=== PATIENT | male | born 1955 | race Caucasian/White ===

== ENCOUNTER 2017-08-21 17:40 | Emergency (ER) | payer OTHER ==
[~2017-08-21] VITALS: Ht 182.9 cm; Wt 87.5 kg
[~2017-08-21 17:40] MED LIST: ACETAMINOPHEN325 M1 PO; BUSPIRONE HCL15 MG PO; CEROVITE ADVAN1 EACH PO; COLACE100 MG PO; DIVALPROEX SOD250 MG PO; DIVALPROEX SOD500 MG PO; EAR WAX DROPS15 M1 OTIC; LEVOTHYROXINE50 MCG PO; MILK OF MA400 MG/5 M PO; NYSTATIN1 EAC1 PO; Q-TUSSIN100 MG/5 M PO; SIMVASTATIN40 MG PO; ZIPRASIDONE HCL60 MG PO
--- OUTSIDE RECORDS SUMMARY | 2017-08-21 17:52 | XMS | Clinical Summary ---
Demographics + + + | Address | [address] | | | [place] [address] | + + + | Home Phone | | + + + | Preferred Language | Unknown | + + + | Marital Status | Single | + + + | Caodaism Affiliation | Unknown | + + + | Race | White | + + + | Ethnic Group | Not or | + + + Author + + + | Author | [facility] | + + + | Organization | [facility] | + + + | Address | Unknown | + + + | Phone | Unavailable | + + + Support +--------+ + + + | Name | Relationship | Address | Phone | +--------+ + + + | Vernell | ECON | [address] | | | | | [place] | | | | | [address] | | +--------+ + + + Care Team Providers + +------+ + | Care Marketing Programs Manager Name | Role | Phone | + +------+ + PP | Unavailable | + +------+ + Source Comments KALI is fully live on both [facility] Ambulatory and [facility] InPatient.[facility] Allergies No Known Allergies Current Medications + + +-------+---------+------+------+-------+ | Prescription | Sig. | Disp. | Refills | Star | End | Statu | | | | | | t | Date | s | | | | | | Date | | | + + +-------+---------+------+------+-------+ | divalproex DR 250 | Take 250 mg by mouth | | | | | Activ | | mg oral | once daily. | | | | | e | | tablet,delayed | | | | | | | | release (DR/EC) | | | | | | | + + +-------+---------+------+------+-------+ | divalproex DR 500 | Take 500 mg by mouth | | | | | Activ | | mg oral | two times daily. | | | | | e | | tablet,delayed | | | | | | | | release (DR/EC) | | | | | | | + + +-------+---------+------+------+-------+ | levothyroxine 50 | Take 50 mcg by mouth | | | | | Activ | | mcg oral tablet | once daily. | | | | | e | + + +-------+---------+------+------+-------+ | simvastatin 40 mg | Take 40 mg by mouth | | | | | Activ | | oral tablet | once daily in the | | | | | e | | | evening. | | | | | | + + +-------+---------+------+------+-------+ | ziprasidone 60 mg | Take 60 mg by mouth | | | | | Activ | | oral capsule | two times daily with | | | | | e | | | meals. | | | | | | + + +-------+---------+------+------+-------+ Active Problems Not on file Social History + +-------+ +--------+------+ | Tobacco Use | Types | Packs/Day | Years | Date | | | | | Used | | + +-------+ +--------+------+ | Never Smoker | | | | | + +-------+ +--------+------+ + + + | Sex Assigned at | Date Recorded | | | | + + + | Not on file | | + + + Last Filed Vital Signs + + + + | Vital Sign | Reading | Time Taken | + + + + | Blood Pressure | 122/80 | 06/28/2014 12:01 PM PST | + + + + | Pulse | 76 | 06/28/2014 12:01 PM PST | + + + + | Temperature | - | - | + + + + | Respiratory Rate | 16 | 06/28/2014 12:01 PM PST | + + + + | Oxygen Saturation | - | - | + + + + | Inhaled Oxygen | - | - | | Concentration | | | + + + + | Weight | 83.9 kg (184 lb 14.4 | 06/28/2014 12:01 PM PST | | | oz) | | + + + + | Height | 182.9 cm (6') | 06/28/2014 12:01 PM PST | + + + + | Body Mass Index | 25.08 | 06/28/2014 12:01 PM PST | + + + + Plan of Treatment + + + + + | Health Maintenance | Due Date | Last Done | Comments | + + + + + | INFLUENZA VACCINE | | | | | (FLU SHOT) | 8 | | | + + + + + Results Not on filefrom Last 3 Months"
--- OUTSIDE RECORDS SUMMARY | 2017-08-21 17:52 | XMS | Clinical Summary ---
Demographics + + + | Address | [address] | | | [place] [address] | + + + | Home Phone | | + + + | Preferred Language | Unknown | + + + | Marital Status | Single | + + + | Anabaptist Affiliation | Unknown | + + + [...] [place] | | | | | [address] | | +--------+ + + + Care Team Providers + +------+ + | Care Therapeutic Assistant Name | Role | Phone | + +------+ + PP | Unavailable | + +------+ + Source Comments KALI is fully live on both [facility] Ambulatory and [facility] InPatient.[facility] Allergies No Known Allergies Current Medications + [...]
[2017-08-21] MEDS ORDERED: FLOMAX0.4 MG PO (18:01)
[2017-08-21] MEDS ORDERED: LATUDA40 MG PO (18:01)
== END 2017-08-21 18:45 | disposition home or self-care (01) ==
LOC: ED 17:40
DX: T42.6X1A Poisoning by other antiepileptic and sedative-hypnotic drugs, accidental (unintentional), initial encounter (principal); E78.00 Pure hypercholesterolemia, unspecified; E03.9 Hypothyroidism, unspecified; Z79.899 Other long term (current) drug therapy
CPT/HCPCS: 99282

== ENCOUNTER 2018-08-18 22:24 | Emergency (ER) | payer OTHER ==
[~2018-08-18] VITALS: Ht 182.9 cm; Wt 87.1 kg
--- OUTSIDE RECORDS SUMMARY | ~2018-08-18 | XMS | Clinical Summary ---
Demographics + + + | Address | [address] | | | [place] [address] | + + + | Home Phone | | + + + | Preferred Language | Unknown | + + + | Marital Status | Single | + + + | Voodoo Affiliation | Unknown | + + + [...] [place] | | | | | [address] | | +--------+ + + + Care Team Providers + +------+ + | Care Roll Repairer Name | Role | Phone | + +------+ + PP | Unavailable | + +------+ + Source Comments KALI is fully live on both [facility] Ambulatory and [facility] InPatient.[facility] Allergies No Known Allergies Current [...] | + + + + + | Influenza (Flu) | | | | | vaccination (#1) | 8 | | | + + + + + Results Not on filefrom Last 3 Months Insurance + +--------+ +--------+-------+---------+ | Payer | Benefi | Subscriber | Type | Phone | Address | | | t Plan | ID | | | | | | / | | | | | | | Group | | | | | + +--------+ +--------+-------+---------+ | PUBLIC HEALTH AIDE MEDICAID | PUBLIC HEALTH AIDE | xxxxxxxx | Medica | | | | | [place] | | id | | | | | [place] | | | | | + +--------+ +--------+-------+---------+ + +--------+ +--------+ + + | Guarantor Name | Accoun | Relation to | Date | Phone | Billing Address | | | t Type | Patient | of | | | | | | | | | | + +--------+ +--------+ + + | FIDEL MILLAN | Person | Self [birth year] Home: | [address] | | | al/[place] | | 1956 | [phone] | [place] [address] | | | l[place] | | | [phone] | | + +--------+ +--------+ + +"
--- OUTSIDE RECORDS SUMMARY | ~2018-08-18 | XMS | Clinical Summary ---
Demographics + + + | Address | [address] | | | [place] [address] | + + + | Home Phone | | + + + | Preferred Language | Unknown | + + + | Marital Status | Single | + + + | Amish Affiliation | Unknown | + + + | Race | Unknown | + + + | Ethnic Group | Unknown | + + + Author + + + | Author | [facility] | | | and [place] | + + + | Organization | [facility] | | | and [place] | + + + | Address | Unknown | + + + | Phone | Unavailable | + + + Support + + + + + | Name | Relationship | Address | Phone | + + + + + | Vernell Camara | ECON | [address] | | | | | [place] | | | | | [address] | | + + + + + | Kim Carter | ECON | Unknown | | + + + + + Care Team Providers + +------+ + | Care Nephrology Nurse Name | Role | Phone | + +------+ + | Pacheco Valdez MD | PP | Unavailable | + +------+ + Allergies No Known Allergies Current Medications + + +-------+---------+------+------+-------+ | Prescription | Sig. | Disp. | Refills | Star | End | Statu | | | | | | t | Date | s | | | | | | Date | | | + + +-------+---------+------+------+-------+ | acetaminophen | Take 650 mg by mouth | | | | | Activ | | (TYLENOL) 325 mg | every 4 hours as | | | | | e | | tablet | needed. | | | | | | + + +-------+---------+------+------+-------+ | guaiFENesin | Take 100 mg by mouth | | | | | Activ | | (ROBITUSSIN) 100 | every 4 hours as | | | | | e | | mg/5 mL SOLN | needed. | | | | | | + + +-------+---------+------+------+-------+ | hydrogen peroxide | Apply topically as | | | | | Activ | | 3% external solution | needed. | | | | | e | + + +-------+---------+------+------+-------+ | nystatin | Apply topically as | | | | | Activ | | (MYCOSTATIN) cream | needed. | | | | | e | + + +-------+---------+------+------+-------+ | levothyroxine | Take 50 mcg by mouth | | | | | Activ | | (SYNTHROID, | every morning | | | | | e | | LEVOTHROID) 50 mcg | (before breakfast). | | | | | | | tablet | | | | | | | + + +-------+---------+------+------+-------+ | ziprasidone | Take 120 mg by mouth | | | | | Activ | | (GEODON) 60 MG | Daily. | | | | | e | | capsule | | | | | | | + + +-------+---------+------+------+-------+ | Multiple | Take by mouth | | | | | Activ | | Vitamins-Minerals | Daily. | | | | | e | | (CEROVITE ADVANCED | | | | | | | | FORMULA PO) | | | | | | | + + +-------+---------+------+------+-------+ | carbamide peroxide | 1 drop 2 times | | | | | Activ | | (DEBROX) 6.5% otic | daily. 5-7 days | | | | | e | | solution | every month | | | | | | + + +-------+---------+------+------+-------+ | divalproex | Take 500 mg by mouth | | | | | Activ | | (DEPAKOTE) 500 mg EC | 2 times daily. | | | | | e | | tablet | | | | | | | + + +-------+---------+------+------+-------+ | divalproex | Take 250 mg by mouth | | | | | Activ | | (DEPAKOTE) 250 mg EC | Daily. | | | | | e | | tablet | | | | | | | + + +-------+---------+------+------+-------+ | simvastatin | Take 20 mg by mouth | | | | | Activ | | (ZOCOR) 40 mg tablet | nightly. | | | | | e | + + +-------+---------+------+------+-------+ Active Problems + + + | Problem | Noted Date | + + + | Weight loss | 02/04/2014 | + + + | Nonspecific (abnormal) findings on radiological and other | 02/04/2014 | | examination of gastrointestinal tract | | + + + | Unspecified hypothyroidism | | + + + + + | Overview: ICD-10 Record update | + + + +---+ | Contact dermatitis and other eczema, due to unspecified cause | | + +---+ | Unspecified malignant neoplasm of skin, site unspecified | | + +---+ + + | Overview: ICD-10 Record update | + + + +---+ | Bipolar disorder, unspecified | | + +---+ + + | Overview: ICD-10 Record update | + + + +---+ | Unspecified schizophrenia, unspecified condition | | + +---+ + + | Overview: ICD-10 Record update | | 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 | + + + +---+ | Essential hypertension, benign | | + +---+ | Pure hypercholesterolemia | | + +---+ | Other specific developmental learning difficulties | | + +---+ | Ingrowing nail | | + +---+ | Cerebral degeneration, unspecified | | + +---+ + + | Overview: ICD-10 Record update | + + + +---+ | Pain in limb | | + +---+ Social History + +-------+ +--------+------+ | Tobacco Use | Types | Packs/Day | Years | Date | | | | | Used | | + +-------+ +--------+------+ | Never Smoker | | | | | + +-------+ +--------+------+ + + +---------+ + | Alcohol Use | Drinks/We | oz/Week | Comments | | | ek | | | + + +---------+ + | No | | | | + + +---------+ + + + + | Sex Assigned at | Date Recorded | | | | + + + | Not on file | | + + + Last Filed Vital Signs + + + + | Vital Sign | Reading | Time Taken | + + + + | Blood Pressure | 137/75 | 04/09/2014 1500 PST | + + + + | Pulse | 65 | 04/09/2014 1500 PST | + + + + | Temperature | 36.3 C (97.3 F) | 04/09/2014 1350 PST | + + + + | Respiratory Rate | 18 | 04/09/2014 1500 PST | + + + + | Oxygen Saturation | 99% | 04/09/2014 1500 PST | + + + + | Inhaled Oxygen | - | - | | Concentration | | | + + + + | Weight | 80.7 kg (178 lb) | 04/09/2014 1225 PST | + + + + | Height | 182.9 cm (6') | 04/09/20145 PST | + + + + | Body Mass Index | 24.14 | 04/09/20145 PST | + + + + Plan of Treatment + + + + + | Health Maintenance | Due Date | Last Done | Comments | + + + + + | Vaccine: | | | | | Dtap/Tdap/Td (1 - | 7 | | | | Tdap) | | | | + + + + + | Vaccine: Zoster (1 | | | | | of 2) | 8 | | | + + + + + | Vaccine: Influenza | | | | | (#1) | 8 | | | + + + + + Results Not on filefrom Last 3 Months Insurance + +--------+ +--------+ +---------+ | Payer | Benefi | Subscriber | Type | Phone | Address | | | t Plan | ID | | | | | | / | | | | | | | Group | | | | | + +--------+ +--------+ +---------+ | [employer] | MODA | [id number] | Medica | [phone] | | | MEDICAID HMO | HEALTH | | id | [phone] | | | | [place]CD | | | | | | | [place] | | | | | + +--------+ +--------+ +---------+ + +--------+ +--------+ + + | Guarantor Name | Accoun | Relation to | Date | Phone | Billing Address | | | t Type | Patient | of | | | | | | | | | | + +--------+ +--------+ + + | FIDEL MILLAN | Person | Self | [birth year] | Home: | [address] [place] | | | al/[place]am | | 1956 | [phone] | [place] [address] | | | [place] | | | [address] | | + +--------+ +--------+ + +"
--- OUTSIDE RECORDS SUMMARY | ~2018-08-18 | XMS | Clinical Summary ---
Demographics + + + | Address | [address] | | | [place] [address] | + + + | Home Phone | | + + + | Preferred Language | Unknown | + + + | Marital Status | Single | + + + | Muslim Affiliation | Unknown | + + + [...] [place] | | | | | [address] | | +--------+ + + + Care Team Providers + +------+ + | Care Marble Cutter Operator Name | Role | Phone | + +------+ + PP | Unavailable | + +------+ + Source Comments KALI is fully live on both [facility] Ambulatory and [facility] InPatient.[facility] Allergies No Known Allergies Current Medications + [...] | | | + +--------+ +--------+-------+---------+ | FINANCIAL SALES CONSULTANT MEDICAID | FINANCIAL SALES CONSULTANT | xxxxxxxx | Medica | | | [...] Self | [birth year] | Home: | [address] | | | [place] | | 1956 | [phone] | [place] [address] | | | [place] | | | [address] | | + +--------+ +--------+ + +"
--- OUTSIDE RECORDS SUMMARY | ~2018-08-18 | XMS | Clinical Summary ---
Demographics + + + | Address | [address] | | | [place] [address] | + + + | Home Phone | | + + + | Preferred Language | Unknown | + + + | Marital Status | Single | + + + | Samaritan Affiliation | Unknown | + + + | Race | Unknown | + + + | Ethnic Group | Unknown | + + + Author + + + | Author | [facility] | | | and Rishabhana | + + + | Organization | [facility] | | | and Rishabhana [...] [place] | | | | | [address] | | + + + + + | Kim Carter | ECON | Unknown | | + + + + + Care Team Providers + +------+ + | Care Chute Feeder Name | Role | Phone | + [...] ICD-10 Record update | | 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
[~2018-08-18 22:24] MED LIST changes: +FLOMAX0.4 MG PO; +LATUDA40 MG PO
[2018-08-19] MEDS ORDERED: KEFLEX500 MG PO (01:45)
== END 2018-08-19 01:51 | disposition home or self-care (01) ==
LOC: ED 22:24
DX: N39.0 Urinary tract infection, site not specified (principal); F79 Unspecified intellectual disabilities; W18.30XA Fall on same level, unspecified, initial encounter; E03.9 Hypothyroidism, unspecified; F41.9 Anxiety disorder, unspecified; F31.9 Bipolar disorder, unspecified; I10 Essential (primary) hypertension; Z79.899 Other long term (current) drug therapy
CPT/HCPCS: 80053; 81001; 85025; 96361; 96365; 99283-25; J0696; J7030

== ENCOUNTER 2019-02-23 05:35 | Inpatient (IN) | payer OTHER ==
[~2019-02-23] VITALS: Ht 182.9 cm; Wt 108.1 kg
--- OUTSIDE RECORDS SUMMARY | ~2019-02-23 | XMS | Encounter Summary ---
Demographics + + + | Address | [address] | | | [place] [address] | + + + | Home Phone [...] Author + + + | Author | [facility] | + + + | Organization | [facility] | + + + | Address | Unknown | + + + | Phone | Unavailable | + + + Support +--------+ + + + | Name | Relationship | Address | Phone | +--------+ + + + | Vernell | ECON | [address] | | | | | [place] | | | | | [address] | | +--------+ + + + Care Team Providers + +------+ + | Care Mitten Sewer Name | Role | Phone | + +------+ + | Pacheco Valdez MD | PCP | | + +------+ + Reason for Visit + + + | Reason | Comments | + + + | New Patient Visit | | + + + Intake Referral (Urgent) +--------+--------+ + + + + | Status | Reason | Specialty | Diagnoses / | Referred By | Referred To | | | | | Procedures | Contact | Contact | +--------+--------+ + + + + | Closed | | Gastroenterol | Diagnoses | José Miguel, | Gas Faculty | | | | ogy | Achalasia | Pacheco Snowden MD | [id number] | | | | | and | PACHECO | [address] [address] | | | | | cardiospasm | JOSÉ MIGUEL GARCIA | Mailcode: | | | | | | [address] | [place] [address] | | | | | | [address] | Health and | | | | | | [place], | Healing, | | | | | | [place] [address] | [address] | | | | | | Phone: | [place], [place] | | | | | | [phone] | [address] | | | | | | Fax: | Phone: | | | | | | [phone] | [phone] | | | | | | | Fax: | | | | | | | [phone] | +--------+--------+ + + + + Encounter Details +--------+---------+ + + + | Date | Type | Department | Care Team | Description | +--------+---------+ + + + | 06/28/ | Office | [facility] | Leyda Trevino, | Achalasia (Primary | | 2014 | Visit | [facility] [address] | PA-C [address] | Dx) | | | | [address] | [address] | | | | | Mailcode: Center | [place], [place] | | | | | [facility] and | [address] | | | | | [facility] [address] | [phone] | | | | | [place], [place] | | | | | | [address] | | | | | | [phone] | | | +--------+---------+ + + + Social History + +-------+ +--------+------+ | Tobacco Use | Types | Packs/Day | Years | Date | | | | | Used | | + +-------+ +--------+------+ | Never Smoker | | | | | + +-------+ +--------+------+ + + +---------+ + | Alcohol Use | Drinks/Week | oz/Week | Comments | + + +---------+ + | Not Asked | | | | + + +---------+ + + + + | Sex Assigned at | Date Recorded | | | | + + + | Not on file | | + + + + + + + | Job Start Date | Occupation | Industry | + + + + | Not on file | Not on file | Not on file | + + + + + + + + | Travel History | Travel Start | Travel End | + + + + + + | No recent travel history available. | + + documented as of this encounter Last Filed Vital Signs + + + + + | Vital Sign | Reading | Time Taken | Comments | + + + + + | Blood Pressure | 122/80 | 06/28/2014 12:01 PM | | | | | PST | | + + + + + | Pulse | 76 | 06/28/2014 12:01 PM | | | | | PST | | + + + + + | Temperature | - | - | | + + + + + | Respiratory Rate | 16 | 06/28/2014 12:01 PM | | | | | PST | | + + + + + | Oxygen Saturation | - | - | | + + + + + | Inhaled Oxygen | - | - | | | Concentration | | | | + + + + + | Weight | 83.9 kg (184 lb 14.4 | 06/28/2014 12:01 PM | | | | oz) | PST | | + + + + + | Height | 182.9 cm (6') | 06/28/2014 12:01 PM | | | | | PST | | + + + + + | Body Mass Index | 25.08 | 06/28/2014 12:01 PM | | | | | PST | | + + + + + documented in this encounter Patient Instructions Patient Instructions Leyda Trevino PA-C - 06/28/2014 12:30 PM PSTTo further evaluate would like to proceed with manometry and probably repeat EGD Discussion with Cade one of his caregivers regarding manometry. Pt will need to be awake f or this and she doesn't think he would cooperate. Will discuss his case with Dr. May and him review previous testing We may need to do nothing else at this point as he has had dilation and gained weight since then. documented in this encounter Progress Notes Leyda Trevino PA-C - 06/27/2014 1:34 PM PSTFormatting of this note might be different fro m the original. Gastroenterology New Patient Evaluation Referring Provider: Pacheco Valdez MD Reason for consult: evaluate for achalasia Previous GI Procedures: 1. colonoscopy 06/2013- Normal by report (not received) 2. EGD 04/09/14- [place], [place] Previous Related Studies: . Pertinent medical diagnosis 1. Developmentally delayed with intermittent explosive disorder HPI: Gemma Tolbert, 58 y.o. presents with history of expressive aphasia and recent EG D suggesting no appreciable esohageal motility with hypertonic LES sp dilation, CT scan that revealed distal dilated esophagus here for further evaluation and possible underlying achal keon. His caregiver says was initially evaluated for a 30 pound weight loss. He will look lik e he has trouble swallowing, they will see him making repetitive swallowing movements after he eats or while he eats. No n/v. His weight has been stable 174-179 since January of 2014 . Since his EGD with dilation in Mar 2014 he has gained 3 pounds. Past Medical History Diagnosis Date Anxiety disorder Bipolar disorder Intermittent explosive disorder Hyperlipidemia Hypothyroid Current outpatient prescriptions:divalproex DR 250 mg oral tablet,delayed release (DR/EC), Take 250 mg by mouth once daily., Disp: , Rfl: divalproex DR 500 mg oral tablet,delayed release (DR/EC), Take 500 mg by mouth two times da luis., Disp: , Rfl: levothyroxine 50 mcg oral tablet, Take 50 mcg by mouth once daily., Disp: , Rfl: simvastatin 40 mg oral tablet, Take 40 mg by mouth once daily in the evening., Disp: , Rfl: ziprasidone 60 mg oral capsule, Take 60 mg by mouth two times daily with meals., Disp: , Rf l: Family History: is unknown History Substance Use Topics Smoking status: Not on file Smokeless tobacco: Not on file Alcohol Use: Not on file Allergies not on file Past Surgical History Procedure Laterality Date Abdominal surgery unknown ROS: unobtainable Physical Exam: Filed Vitals: 06/28/2014 12:01 PM Height: 1.829 m (6') Weight: 83.87 kg (184 lb 14.4 oz) BP: 122/80 Pulse: 76 Resp: 16 PainSc: 0 - Zero BMI: 25.07 kg/(m^2) General appearance: Appears healthy. Alert; in no acute distress. Pleasant but makes aquilino quent hand movements and loud noises Head: negative findings: skull size and contour normal Eyes: Perr, sclera anicertic Throat: Poor dentityion, Lips, mucosa, and tongue normal. Oropharynx and tonsils normal. Neck: Neck supple. No tenderness. No adenopathy. Thyroid symmetric, normal size. Lungs: negatives findings: normal respiratory rate and rhythm, lungs clear to auscultation Heart: regular rhythm; normal S1 and S2 with no murmurs, rubs, or gallops Abdomen: Large midline surgical scar, nondistended; normal bowel sounds; soft, nontender; no hepatomegaly or splenomegaly; no masses Extremities: Extremities normal. No joint deformities, edema, or skin discoloration. Statio n and gait normal. Skin: Skin color, texture, turgor normal. No rashes or lesions. Lymph nodes: No palpable lymph nodes Neurologic: grossly non focal Assessment: Fidel Toscano, 58 y.o., M with presents with history of expressive aphasia a nd recent EGD suggesting no appreciable esohageal motility with hypertonic LES sp dilation, CT scan that revealed distal dilated esophagus here for further evaluation of possible achal nayan. It is unclear if dilation has helped but he has actually gained weight since then and is no longer losing. However, Per his caregiver he still makes the repetitive swallowing mov ements with eating. We discussed additional evaluation such as proceeding with manometry to measure the pressures across the LES. With fidel's developmental delay and underlying mental health diagnosis the caregiver and I agree he probably would not tolerate. I will discuss hi s case further with Dr. May to get further recs. We may do nothing more at this time gi dario that his weight has stabilized. Follow up: pending above. >30 minutes Greater than 50% was on counseling with caregiver on diagnosis of achalsia and how it can be progressive, treatment options including botox or myotomy. Recommended small f requent meals. documented in this en counter Plan of Treatment Not on filedocumented as of this encounter Visit Diagnoses + + | Diagnosis | + + | Achalasia - Primary Achalasia and cardiospasm | + + documented in this encounter"
--- OUTSIDE RECORDS SUMMARY | ~2019-02-23 | XMS | Encounter Summary ---
Demographics + + + | Address | [address] | | | [place] [address] | + + + | Home Phone | | + + + | Preferred Language | Unknown | + + + | Marital Status | Single | + + + | Mandaeism Affiliation | Unknown | + + + | Race | White | + + + | Ethnic Group | Not or | + + + Author + + + | Author | [facility] | + + + | Organization | [facility] | + + + | Address | Unknown | + + + | Phone | Unavailable | + + + Support +--------+ + + + | Name | Relationship | Address | Phone | +--------+ + + + | Vernell | ECON | [address] | | | | | [place] | | | | | [address] | | +--------+ + + + Care Team Providers + +------+ + | Care Paralegal Supervisor Name | Role | Phone | + +------+ + | Pacheco Valdez MD | PCP | | + +------+ + Encounter Details +--------+ + + + + | Date | Type | Department | Care Team | Description | +--------+ + + + + | 06/25/ | Abstract | [facility] | Clinic, | | | 2014 | | [facility] [address] | Gastroenterology | | | | | [facility] | | | | | | Mailcode: [facility] | | | | | | [facility] | | | | | | [facility] [place], [address] | | | | | | [place], [place] | | | | | | [address] | | | | | | [phone] | | | +--------+ + + + + Social History + +-------+ +--------+------+ | Tobacco Use | Types | Packs/Day | Years | Date | | | | | Used | | + +-------+ +--------+------+ | Never Assessed | | | | | + +-------+ [...] + + documented as of this encounter Plan of Treatment Not on filedocumented as of this encounter Visit Diagnoses Not on filedocumented in this encounter"
--- OUTSIDE RECORDS SUMMARY | ~2019-02-23 | XMS | Clinical Summary ---
Demographics + + + | Address | [address] | | | [place] [address] | + + + | Home Phone | | + + + | Preferred Language | Unknown | + + + | Marital Status | Single | + + + | Roman Catholic Affiliation | Unknown | + + + | Race | Unknown | + + + | Ethnic Group | Unknown | + + + Author + + + | Author | [facility] | | | and Rishabhana | + + + | Organization | [facility] | | | and Rishabhana | [...] [place] | | | | | [address] | | + + + + + | Kim Carter | ECON | Unknown | | + + + + + Care Team Providers + +------+ + | Care Commissioning Editor Name | Role | Phone | + +------+ + | Pacheco Valdez MD | PCP | Unavailable | + +------+ + Allergies No Known Allergies Medications + + + +---------+------+------+-------+ | Medication | Sig | Dispensed | Refills | Star | End | Statu | | | | | | t | Date | s | | | | | | Date | | | + + + +---------+------+------+-------+ | acetaminophen | Take 650 mg by mouth | | 0 | | | Activ | | (TYLENOL) 325 mg | every 4 hours as | | | | | e | | tablet | needed. | | | | | | + + + +---------+------+------+-------+ | guaiFENesin | Take 100 mg by mouth | | 0 | | | Activ | | (ROBITUSSIN) 100 | every 4 hours as | | | | | e | | mg/5 mL SOLN | needed. | | | | | | + + + +---------+------+------+-------+ | hydrogen peroxide | Apply topically as | | 0 | | | Activ | | 3% external solution | needed. | | | | | e | + + + +---------+------+------+-------+ | nystatin | Apply topically as | | 0 | | | Activ | | (MYCOSTATIN) cream | needed. | | | | | e | + + + +---------+------+------+-------+ | levothyroxine | Take 50 mcg by mouth | | 0 | | | Activ | | (SYNTHROID, | every morning | | | | | e | | LEVOTHROID) 50 mcg | (before breakfast). | | | | | | | tablet | | | | | | | + + + +---------+------+------+-------+ | ziprasidone | Take 120 mg by mouth | | 0 | | | Activ | | (GEODON) 60 MG | Daily. | | | | | e | | capsule | | | | | | | + + + +---------+------+------+-------+ | Multiple | Take by mouth | | 0 | | | Activ | | Vitamins-Minerals | Daily. | | | | | e | | (CEROVITE ADVANCED | | | | | | | | FORMULA PO) | | | | | | | + + + +---------+------+------+-------+ | carbamide peroxide | 1 drop 2 times | | 0 | | | Activ | | (DEBROX) 6.5% otic | daily. 5-7 days | | | | | e | | solution | every month | | | | | | + + + +---------+------+------+-------+ | divalproex | Take 500 mg by mouth | | 0 | | | Activ | | (DEPAKOTE) 500 mg EC | 2 times daily. | | | | | e | | tablet | | | | | | | + + + +---------+------+------+-------+ | divalproex | Take 250 mg by mouth | | 0 | | | Activ | | (DEPAKOTE) 250 mg EC | Daily. | | | | | e | | tablet | | | | | | | + + + +---------+------+------+-------+ | simvastatin | Take 20 mg by mouth | | 0 | | | Activ | | (ZOCOR) 40 mg tablet | nightly. 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 | + + Last Filed Vital Signs + [...] Weight | 80.7 kg (178 lb) | 04/09/20145 PST | + + + + | Height | 182.9 cm (6') | 04/09/2014 1225 PST | + + + + | Body Mass Index | 24.14 | 04/09/2014 1225 PST | + + + + Plan [...] | | | | | (#1) | 9 | | | + + + + + Results Not on filefrom Last 3 Months Insurance + +--------+ +--------+ +---------+--------+ | Payer | Benefi | Subscriber | Effect | Phone | Address | Type | | | t Plan | ID | ivy | | | | | | / | | Dates | | | | | | Group | | | | | | + +--------+ +--------+ +---------+--------+ | [employer] | MODA | [id number] | | [phone] | | Medica | | MEDICAID HMO | HEALTH | | 012-Pr | 1 | | id | | | MDCD | | esent | | | | | | [place] | | | | | | + +--------+ +--------+ +---------+--------+ + +--------+ +--------+ + + | Guarantor Name | Accoun | Relation to | Date | Phone | Billing Address | | | t Type | Patient | of | | | | | | | | | | + +--------+ +--------+ + + | Fidel Toscano | Person | Self [birth year] | [address] | | | al/[place] | | 1956 | [phone] | [place] [address] | | | luis | | | 4 (Home) | | + +--------+ +--------+ + + Advance Directives Patient has advance care planning documents on file. For more information, please contact:[facility] and [facility] [place] [address]"
--- OUTSIDE RECORDS SUMMARY | ~2019-02-23 | XMS | Clinical Summary ---
Demographics + + + | Address | [address] | | | [place] [address] | + + + | Home Phone | | + + + | Preferred Language | Unknown | + + + | Marital Status | Single | + + + | Jehovah'S Witness Affiliation | Unknown | + + + [...] [place] | | | | | [address] | | +--------+ + + + Care Team Providers + +------+ + | Care Souvenir Assembler Name | Role | Phone | + +------+ + PCP | Unavailable | + +------+ + Source Comments KALI is fully live on both [facility] Ambulatory and [facility] InPatient.[facility] Allergies No Known Allergies Medications + + + +---------+------+------+-------+ | Medication | Sig | Dispensed | Refills | Star | End | Statu | | | | | | t | Date | s | | | | | | Date | | | + + + +---------+------+------+-------+ | divalproex DR 250 | Take 250 mg by mouth | | 0 | | | Activ | | mg oral | once daily. | | | | | e | | tablet,delayed | | | | | | | | release (DR/EC) | | | | | | | + + + +---------+------+------+-------+ | divalproex DR 500 | Take 500 mg by mouth | | 0 | | | Activ | | mg oral | two times daily. | | | | | e | | tablet,delayed | | | | | | | | release (DR/EC) | | | | | | | + + + +---------+------+------+-------+ | levothyroxine 50 | Take 50 mcg by mouth | | 0 | | | Activ | | mcg oral tablet | once daily. | | | | | e | + + + +---------+------+------+-------+ | simvastatin 40 mg | Take 40 mg by mouth | | 0 | | | Activ | | oral tablet | once daily in the | | | | | e | | | evening. | | | | | | + + + +---------+------+------+-------+ | ziprasidone 60 mg | Take 60 mg by mouth | | 0 | | | Activ | | oral capsule | two times daily with | | | | | e | | | meals. | | | | | | + + + +---------+------+------+-------+ Active Problems Not on file Social History [...] | | + + + + + Plan of Treatment + + + + + | Health Maintenance | Due Date | Last Done | Comments | + + + + + | Influenza (Flu) | | | | | vaccination (#1) | 9 | | | + + + + + | Pneumococcal | Aged Out | | No longer eligible | | vaccination | | | based on patient's | | | | | age to complete this | | | | | topic | + + + + + Results Not on filefrom Last 3 Months Insurance + +--------+ +--------+-------+---------+--------+ | Payer | Benefi | Subscriber | Effect | Phone | Address | Type | | | t Plan | ID | ivy | | | | | | / | | Dates | | | | | | Group | | | | | | + +--------+ +--------+-------+---------+--------+ | [employer] | [employer] | xxxxxxxx | 11/18/19 | | | Medica | | | [place] | | 14-Pre | | | id | | | [place] | | sent | | | | + +--------+ +--------+-------+---------+--------+ + +--------+ +--------+ + + | Guarantor Name | Accoun | Relation to | Date | Phone | Billing Address | | | t Type | Patient | of | | | | | | | | | | + +--------+ +--------+ + + | Fidel Toscano | Person | Self | [birth year] | [address] | | | al/Fam | | 8 | [phone] | [place] [address] | | | luis | | | 4 (Home) | | + +--------+ +--------+ + +"
[~2019-02-23 05:35] MED LIST changes: +CIPRO500 MG PO; +FINASTERIDE5 MG PO; +KEFLEX500 MG PO; +OXYBUTYNIN CHLOR5 MG PO
[2019-02-23] MEDS ORDERED: OXYBUTYNIN CHLOR5 M1 PO (09:24)
[2019-02-23] MEDS ORDERED: TAMSULOSIN HCL0.4 MG PO (13:07)
[2019-02-23] MEDS ORDERED: DIVALPROEX SOD500 M1 PO (13:09)
[2019-02-23] MEDS ORDERED: DIVALPROEX SOD250 M1 PO (13:09)
[2019-02-23] MEDS ORDERED: PYRIDIUM200 MG PO (15:15)
[2019-02-23] MEDS ORDERED: ROBAFEN100 MG/5 M PO (15:15)
[2019-02-23] MEDS ORDERED: I-CAPS WITH LU1 EACH PO (16:26)
--- NOTE | 2019-02-23 16:44 | EKG ---
[facility] [address] [facility] [facility] [place], [place] [address] Signed Normal sinus rhythm Normal ECG No previous ECGs available Confirmed by MACIEL PARIS DO ([id number]) on 02/23/2019 4:44:43 PM Electronically Signed By: MACIEL PARIS DO 02/23/19 1644 PATIENT NAME: GAURANG MILLANShantal Corley Electrocardiogram DATE OF : 59 PHYSICIAN: MACIEL PARIS DO REPORT #: [id number] REPORT IS CONFIDENTIAL AND NOT TO BE RELEASED WITHOUT AUTHORIZATION
--- NOTE | 2019-02-24 09:25 | OR ---
[facility] [address] [place], [place] [address] Signed DATE OF OPERATION: 02/23/2019 SURGEON: Bree Brar MD PREOPERATIVE DIAGNOSES: 1. 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 2. Reactive overactive bladder. POSTOPERATIVE DIAGNOSES: 1. 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 2. Reactive overactive bladder. NAMES OF PROCEDURES: 1. Urethral dilation using Mandi sounds, from 14-Afghan to 28-Afghan. 2. Transurethral resection of prostate. ANESTHESIA: General. ESTIMATED BLOOD LOSS: 10 mL. COMPLICATIONS: None. SPECIMENS: Prostate chips sent to Pathology for evaluation. DRAINS: A 22-Afghan 3-way Ge catheter, connected to continuous bladder irrigation. INDICATIONS FOR PROCEDURE: Mr. Millan is a 63-year-old gentleman with a past medical history significant for developmental delay, who initially presented to me earlier this year with complaints of severe urinary urgency, frequency, and weak force of stream. He was initially diagnosed with overactive bladder and was managed with both oxybutynin and Flomax to help with his force of stream. He experienced a bout of gross hematuria, which then prompted a diagnostic cystoscopy. The diagnostic cystoscopy did not reveal any evidence of suspicious bladder masses or lesions, it did reveal evidence of moderate trilobar BPH with the presence of a median lobe. Also of note, he underwent a negative renal bladder Electronically Signed By: BREE BRAR MD 02/24/19 0925 PATIENT NAME: JAZZY MILLAN OPERATIVE REPORT DATE OF : 59 REPORT #: [id number] PHYSICIAN: BREE BRAR MD PCP: ANGIE MONROE MD REPORT IS CONFIDENTIAL AND NOT TO BE RELEASED WITHOUT AUTHORIZATION [facility] [address] [place], [place] [address] Signed ultrasound during the workup. After a long discussion with the patient's caregivers, the decision was made for the patient to undergo transurethral resection of the prostate for definitive management of his obstructing prostatism symptoms. He was recently placed on daily finasteride and is currently still taking Flomax once daily. OPERATIVE FINDINGS: 1. The patient's urethral meatus and fossa navicularis were dilated using Mandi sounds from 14-Afghan to 28-Afghan without difficulty. 2. Physical examination reveals a normal circumcised phallus with a glanular meatus. Testicles are descended bilaterally with no palpable masses. 3. Diagnostic cystoscopy was performed, which revealed no evidence of any suspicious masses, lesions, or stones within the bladder. Bilateral ureteral orifices are easily visualized and are not near the bladder neck. There is diffuse grade 3 bladder wall trabeculation noted. 4. The prostate was resected using a 24-Afghan loop, beginning with the resection of the large median lobe, followed by the left lateral lobe and the right lobe of the prostate. Overall, the resection was quite straightforward and there was minimal hemorrhage associated with the resection. At the end of the resection, there was a very good TUR defect noted in the prostatic urethra, down to the level of the verumontanum. No resection was performed distal to this landmark. I was able to appreciate a normally functioning external sphincter at the end of the procedure. 5. The prostate chips were placed in a specimen cup and sent to Pathology for evaluation. A 22-Afghan 3-way Ge catheter was inserted over a Sensor wire to the end of the procedure, and was connected to continuous bladder irrigation. DESCRIPTION OF PROCEDURE: After informed consent was obtained, the patient was taken back to the operating room. [facility] to the operating room table, where general anesthesia was induced. His genitalia were then prepped and draped in a standard sterile fashion. His urethral meatus and fossa navicularis were then dilated as per above. Using a visual obturator, a 30-degree lens was then inserted through the patient's urethra and into the patient's bladder. Diagnostic cystoscopy was then performed. The visual obturator was then switched out for a resectoscope with a 24-Afghan loop. After careful evaluation of the bilateral ureteral orifices and their location relative to the bladder neck, I began my resection of the large median lobe of the prostate. This resected quite easily and with minimal hemorrhage. I then turned my attention then to the left lateral lobe of the prostate, followed by the right lateral lobe of the prostate. The prostate tissue was dissected down to the level of the capsule laterally and down distally to the verumontanum. There was no additional resection performed beyond the verumontanum. As stated above, there was minimal hemorrhage during the resection. When there was hemorrhage, adequate hemostasis was achieved and maintained using the bipolar loop. The prostate chips were then irrigated from the patient's bladder using a Rolanda Electronically Signed By: BREE BRAR MD 02/24/19 0925 PATIENT NAME: JAZZY MILLAN OPERATIVE REPORT DATE OF : 59 REPORT #: [id number] PHYSICIAN: BREE BRAR MD PCP: ANGIE MONROE MD REPORT IS CONFIDENTIAL AND NOT TO BE RELEASED WITHOUT AUTHORIZATION [address] [address] Signed syringe. I repeated the resection of the prostate a couple of times to resect the remaining prostatic tissue. I then switched the resectoscope for a bipolar loop and then cauterized areas of the prostatic capsule, namely the anterior bladder neck area. At the end of the resection, I was able to fully visualize the bilateral ureteral orifices, which were not affected by the resection. Once I was satisfied that hemostasis was complete, I repeated irrigation of the remaining prostate chips from the patient's bladder. The prostate chips were placed in a specimen cup to be sent to Pathology for evaluation. The resectoscope was removed, leaving the sheath within the patient's bladder. I inserted a Sensor wire through the sheath into the patient's bladder and the sheath was then removed fully intact. Over the wire, a 22-Afghan 3-way Ge catheter was inserted into the patient's bladder. The wire was removed, leaving the catheter behind. The catheter was then anchored using 30 mL of sterile water. The Ge catheter was then manually irrigated a couple more times and the effluent was very clear light pink in color. The catheter was then connected to continuous bladder irrigation. The procedure was then terminated. The patient tolerated the procedure well without any complication. He will now be transferred to the postanesthesia care unit in stable condition. DISPOSITION: I discussed the details of today's procedure with Mae, the clinical protective services case worker at [facility] and answered all of her questions. The patient will remain here in the hospital for the next two nights, receiving appropriate sedation and one-on-one sitter in order to prevent possible traumatic removal of the catheter on the part of the patient. He has mental delay around two years, and has a history of irritability with various procedures. A regular diet will be advanced slowly as tolerated, and he will be given pain control as needed. Dr. Francis Stinson has been consulted for management of a Precedex drip. I anticipate that the patient will be discharged to home on the morning of February 25. Prior to discharge, his Ge catheter will be removed and he will undergo a voiding trial. He will be scheduled to return to clinic in approximately four weeks for his 1st postoperative evaluation. The clinical staff is aware that the patient's activities will need to be limited for the next six weeks, including no pushing, pulling, straining, or squatting. Bree Brar MD AR/MODL /[id number] Electronically Signed By: BREE BRAR MD 02/24/19 0925 PATIENT NAME: JAZZY MILLAN OPERATIVE REPORT DATE OF : 59 REPORT #: [id number] PHYSICIAN: BREE BRAR MD PCP: ANGIE MONROE MD REPORT IS CONFIDENTIAL AND NOT TO BE RELEASED WITHOUT AUTHORIZATION [facility] [address] [place] [address] [place], [place] [address] Signed Copies: ~ Electronically Signed By: BREE BRAR MD 02/24/19 0925 PATIENT NAME: JAZZY MILLAN OPERATIVE REPORT DATE OF : 59 REPORT #: [id number] PHYSICIAN: BREE BRAR MD PCP: ANGIE MONROE MD REPORT IS CONFIDENTIAL AND NOT TO BE RELEASED WITHOUT AUTHORIZATION
--- NOTE | 2019-02-24 13:59 | PATH ---
[facility] [address] [place], [place] [address] Signed SPECIMEN(S): A PROSTATE CHIPS SPECIMEN SOURCE: A. PROSTATE CHIPS CLINICAL HISTORY: BPH with lutz; OAB. Cystoscopy with TURP. FINAL PATHOLOGIC DIAGNOSIS: Prostate, transurethral resection: - Benign nodular, glandular and stromal hyperplasia. - Mild chronic prostatitis. LJA:cml:C2NR MICROSCOPIC EXAMINATION: Histologic sections of all submitted blocks are examined by light microscopy. These findings, together with the gross examination, support the pathologic diagnosis. GROSS DESCRIPTION: The specimen, labeled "POLY, prostate chips," is received in formalin and consists of a 16.0 g, 5.5 x 5.5 x 1.5 cm aggregate of caro-pink to caro-white soft tissue fragments. No discrete lesions are identified. The specimen is entirely submitted in cassettes (A1-A7). AR (under the direct supervision of a pathologist) The Gross Description was prepared using a voice recognition system. The report was reviewed for accuracy; however, sound-alike word errors, addition and/or deletions may occur. If there is any question about this report, please contact Client Services. PERFORMING LABORATORY: The technical component was performed by [facility], [address] [place] [id number] (Dry Cleaner Presser: Gena Teresa MD; CLIA# [id number]) [facility] [address] [address] (Dry Cleaner Presser: Rob Wiley MD; CLIA# [id number]). Diagnostician: Rob Wiley MD Pathologist Electronically Signed 02/24/2019 PATIENT NAME: JAZZY MILLAN PATHOLOGY DATE OF : 59 REPORT #: [id number] PHYSICIAN: [facility] PCP: ANGIE MONROE MD REPORT IS CONFIDENTIAL AND NOT TO BE RELEASED WITHOUT AUTHORIZATION [address] [address] Signed Copies: ~ PATIENT NAME: JAZZY MILLAN PATHOLOGY DATE OF : 59 REPORT #: [id number] PHYSICIAN: [facility] PCP: ANGIE MONROE MD REPORT IS CONFIDENTIAL AND NOT TO BE RELEASED WITHOUT AUTHORIZATION
== END 2019-02-25 13:30 | disposition home or self-care (01) | DRG 713 ==
LOC: DS 05:35 → OPS 05:35 → DS 06:45 → OPS 09:12 → CCU 09:12 → MS 02-24 18:40
PROVIDERS: ADMIT Urology
PROC: 0VT08ZZ Resection of Prostate, Via Natural or Artificial Opening Endoscopic (ICD-10-PCS; principal; 2019-02-23 06:45)
DX: N40.1 Benign prostatic hyperplasia with lower urinary tract symptoms (principal); E87.1 Hypo-osmolality and hyponatremia; F05 Delirium due to known physiological condition; N39.41 Urge incontinence; R35.0 Frequency of micturition; N32.89 Other specified disorders of bladder; N32.81 Overactive bladder; N13.9 Obstructive and reflux uropathy, unspecified; G80.9 Cerebral palsy, unspecified; F31.9 Bipolar disorder, unspecified; F79 Unspecified intellectual disabilities; E78.5 Hyperlipidemia, unspecified; E03.9 Hypothyroidism, unspecified; E66.9 Obesity, unspecified; F20.9 Schizophrenia, unspecified; I10 Essential (primary) hypertension; F41.9 Anxiety disorder, unspecified; Z68.34 Body mass index [BMI] 34.0-34.9, adult; Z79.899 Other long term (current) drug therapy
CPT/HCPCS: 00914; 36415; 80048; 88305; 93005; 93010; C1769; J0696; J1100; J1650; J1885; J2060; J2250; J2405; J2704; J2765; J3010; J7030; J7060; J7120

== ENCOUNTER 2021-12-10 08:39 | Emergency (ER) | payer OTHER ==
[~2021-12-10] VITALS: Ht 182.9 cm; Wt 108.1 kg
[~2021-12-10 08:39] MED LIST changes: +DIVALPROEX SOD250 M1 PO; +DIVALPROEX SOD500 M1 PO; +I-CAPS WITH LU1 EACH PO; +OXYBUTYNIN CHLOR5 M1 PO; +PYRIDIUM200 MG PO; +ROBAFEN100 MG/5 M PO; +TAMSULOSIN HCL0.4 MG PO
== END 2021-12-10 10:20 | disposition home or self-care (01) ==
LOC: ED 08:39
DX: R10.9 Unspecified abdominal pain (principal); I10 Essential (primary) hypertension; E03.9 Hypothyroidism, unspecified; K31.84 Gastroparesis; Z79.899 Other long term (current) drug therapy
CPT/HCPCS: 99284

== ENCOUNTER 2022-04-12 08:22 | Emergency (ER) | payer OTHER ==
[~2022-04-12] VITALS: Ht 182.9 cm; Wt 108.1 kg
[2022-04-12] MEDS ORDERED: IBU600 MG PO (20:39)
== END 2022-04-12 10:28 | disposition home or self-care (01) ==
LOC: ED 08:22
DX: J10.1 Influenza due to other identified influenza virus with other respiratory manifestations (principal); Z20.822 Contact with and (suspected) exposure to COVID-19; W19.XXXA Unspecified fall, initial encounter
CPT/HCPCS: 36415; 71045; 80053; 83735; 85025; 87502; 99285-25; A9270; C9803; J7040; U0003

== ENCOUNTER 2022-04-12 19:10 | Emergency (ER) | payer OTHER ==
[~2022-04-12] VITALS: Ht 182.9 cm; Wt 108.5 kg
--- OUTSIDE RECORDS SUMMARY | 2022-04-12 19:18 | XMS ---
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 MILLAN Security Nursing Home Aide Events No recent Security Events currently on file CRITERIA MET - [facility] - 2 Visits in 30 Days CARE PROVIDERS There are no care providers on record at this time. Care Guidelines exist for the following facilities: [facility] ( 10/26/2019 ) [facility] VISIT COUNT (12 MO.) 3 [facility] TOTAL 3 NOTE: Visits indicate total known visits. ED/UCC VISIT TRACKING (12 MO.) 04/12/2022 19:10 [facility] [place] TYPE: Emergency COMPLAINT: - COLD SYMPTOMS 04/12/2022 08:22 [facility] [place] TYPE: Emergency COMPLAINT: - FALL, WEAKNESS 12/10/2021 08:40 [facility] [place] TYPE: Emergency COMPLAINT: - WEAKNESS DIAGNOSES: - Unspecified abdominal pain - Essential (primary) hypertension - Hypothyroidism, unspecified - Gastroparesis - Other signals analyst (current) drug therapy INPATIENT VISIT TRACKING (12 MO.) No inpatient visits to display in this time frame [email or web address]
[2022-04-12] MEDS ORDERED: IBU600 MG PO (20:39)
== END 2022-04-12 21:00 | disposition home or self-care (01) ==
LOC: ED 19:10
DX: J10.1 Influenza due to other identified influenza virus with other respiratory manifestations (principal); E78.00 Pure hypercholesterolemia, unspecified; E03.9 Hypothyroidism, unspecified; I10 Essential (primary) hypertension; Z79.899 Other long term (current) drug therapy
CPT/HCPCS: 94640; 94664; 96372; 99284-25; J1885

== ENCOUNTER 2022-04-27 05:42 | Day surgery (SDC) | payer OTHER ==
[~2022-04-27] VITALS: Ht 182.9 cm; Wt 95.5 kg
[~2022-04-27 05:42] MED LIST changes: +IBU600 MG PO; +METFORMIN HCL500 MG PO
--- NOTE | 2022-04-27 08:20 | NUR ---
04/27/22 0820 Jerica Sheldon 0755 PT ARRIVED TO PACU WITH ORAL AIRWAY IN PLACE AND ENTOMOLOGY PROFESSOR DOING JAW THRUST TO MAINTAIN AIRWAY. PT ASLEEP AND NON AROUSABLE. 0805 PT STARTED MOVING AND BITTING DOWN ON AIRWAY, PT UNABLE TO FOLLOW COMMANDS AND AIRWAY REMAINS IN PLACE, PT ASLEEP AND JAW THRUST NO LONGER NEEDED. 0810 PT WAKES AND OPENS MOUTH, ORAL AIRWAY AND O2 MASK REMOVED. 0815 O2 SAT 87% AND 3L NC PLACE, PT WAKES TO TACTILE STIMULI AND ENCOURAGED TO DEEP BREATHE. O2 INCREASED TO 90S. 0819 PT ASLEEP AND SMALL AMOUNT OF SNORING NOTED. O2 HIGH 90S, RESP EVEN AND UNLABORED.
--- NOTE | 2022-04-27 08:30 | NUR ---
0830-PATIENT BACK TO ROOM FROM PACU ON 2L VIA. RECEIVED REPORT FORM YEIMY FRANCIS. PATIENT IS AWAKE. PATIENT IS NONVERBAL AND DOESN'T APPEAR TO BE IN PAIN. PATIENT IS DRINKING A SODA AND EATING PUDDING. NO DRAINAGE IN MOUTH. COORDINATOR OF GENETIC SERVICES IN ROOM. CALL LIGHT WITHIN REACH.
--- NOTE | 2022-04-27 09:10 | NUR ---
TIRTATED O2 OFF. O2 SATS AROUND 98% ON RA.
--- NOTE | 2022-04-27 10:02 | NUR ---
0927-PATIENT LAYING IN BED AWAKE WATCHING TV. PATIENT DOESN'T APPEAR TO BE IN PAIN. NO DRAINAGE NOTED. CAREGIVER AT BEDSIDE AND CALL LIGHT WITHIN REACH. PATIENT IS READY TO GO HOME.
--- NOTE | 2022-04-27 10:05 | NUR ---
0935-DISCHARGE INSTRUCTIONS GIVEN TO TRACTOR OPERATOR BATTERY. ALL QUESTIONS ANSWERED. PATIENT AMBULATES TO WHEELCHAIR WITH ASSISTANCE. TOLERATED WELL. RIDE GIVEN TO FRONT OF HOSPITAL WHERE VAN AND CAREGIVER WERE WAITING.
== END 2022-04-27 09:35 | disposition home or self-care (01) ==
LOC: DS 05:42 → OPS 05:42 → DS 07:00 → OPS 09:35
PROVIDERS: ATTEND Dentist General Practice
DX: K05.6 Periodontal disease, unspecified (principal); I10 Essential (primary) hypertension; F31.9 Bipolar disorder, unspecified; E11.9 Type 2 diabetes mellitus without complications; G80.9 Cerebral palsy, unspecified; E78.00 Pure hypercholesterolemia, unspecified
CPT/HCPCS: J1885; J2001; J2250; J2405; J2704; J3010; J7121

== ENCOUNTER 2022-11-01 15:06 | Emergency (ER) | payer MEDICARE, OTHER ==
[~2022-11-01] VITALS: Ht 182.9 cm; Wt 92.0 kg
[2022-11-01 20:06] VITALS: BP 142/96
== END 2022-11-01 20:06 | disposition home or self-care (01) ==
LOC: ED 15:06
DX: J34.89 Other specified disorders of nose and nasal sinuses (principal); I10 Essential (primary) hypertension; E03.9 Hypothyroidism, unspecified; F20.9 Schizophrenia, unspecified; F71 Moderate intellectual disabilities; Z79.899 Other long term (current) drug therapy
CPT/HCPCS: 99283

== ENCOUNTER 2023-06-14 05:30 | Day surgery (SDC) | payer MEDICARE, OTHER ==
[~2023-06-14] VITALS: Ht 182.9 cm; Wt 86.6 kg
[~2023-06-14 05:30] MED LIST changes: +BASE B,POLYETHYL1 GM MC; +MILK OF MA2400 MG/10 PO; +SENNA8.6 MG PO; +TUSSIN100 MG/51 PO
[2023-06-14 06:00] VITALS: BP 143/98
[2023-06-14] MEDS ORDERED: MYRBETRIQ25 MG PO (06:10)
[2023-06-14] MEDS ORDERED: LEVOTHYROXINE50 MC1 PO (06:11)
[2023-06-14] MEDS ORDERED: METFORMIN HCL500 MG PO (06:11)
--- NOTE | 2023-06-14 06:48 | NUR ---
THIS RN IN ROOM IN ATTEMPT FOR BS CHECK, PT HANDS SHAKING AND CLENCHED AT THIS TIME. UNABLE TO COLLECT BS. PER RACHAEL PEREZ, OK WITHOUT. PT RESTING CALMLY IN BED AT THIS TIME. PER PT TAKING HTN MEDICATION AND DM TYPE 2 MED, EKG STANDARD PROTOCAL. PER RACHAEL PEREZ, AFTER REVIEWING EKG FROM 2019 NORMAL SR, OK WITHOUT.
--- NOTE | 2023-06-14 08:01 | NUR ---
06/14/23 0801 Tiffany Almonte 0745: PATIENT ARRIVES IN PACU WITH CHRIS CANO, JAW THRUSTING PATIENT AND ORAL AIRWAY IS IN PLACE. PATIENT IS UNRESPONSIVE. PENNY BANDA TAKES OVER JAW THRUST. BEDSIDE REPORT RECEIVED. 0800: PATIENT MOVES HEAD AND DOES NOT FOLLOW COMMANDS TO OPEN HIS MOUTH. DEEP ORAL SUCTIONING COMPLETED. PATIENT RETURNS TO RESTING QUIETLY WITH HIS EYES CLOSED. JAW THRUST IS NO LONGER NECESSARY. ORAL AIRWAY REMAINS IN PLACE.
--- NOTE | 2023-06-14 08:20 | NUR ---
PT ARRIVES TO UNIT FROM PACU VIA STRETCHER. PT IS AWAKE AND APPEARS COMFORTABLE AT THIS TIME PER FLACC SCALE. REPORT RECEIVED FROM CRUZ FRANCIS, FOOD SERVICE DIRECTOR MIGUEL ANGEL AT BEDSIDE. PT HAS SCANT AMOUNT OF RED DRAINAGE DURING SUCTIONING, PT FOLLOWING DIRECTION WITHOUT DIFFICULTY. SCD'S IN PLACE W/WARM BLANKET. PT ON RA W/O2 SATS >90%, RESPIRATIONS EVEN AND UNLABORED, NO SIGNS OF DISTRESS. PT OCCASIONALLY COUGHS, POSITIVE REINFORCEMENT USED FOR ENCOURAGEMENT OF THIS, PT SEEMS RECEPTIVE. CALL LIGHT WITHIN REACH, NO FURTHER NEEDS AT THIS TIME.
[2023-06-14 08:30] VITALS: BP 154/98
--- NOTE | 2023-06-14 08:40 | NUR ---
THIS RN IN ROOM FOR ORAL FLUIDS AND SF PUDDING. PT IS TOLERATING WITHOUT DIFFICULTY SWALLOWING AND CONTINUES TO COUGH TO CLEAR THROAT ENCOURAGED. PT REMAINS ON RA, REMAINS >90% VIA PULSE OX WHILE EATING. CALL LIGHT WITHIN REACH, NO FURTHER NEEDS AT THIS TIME. PER FLACC SCALE, PT REMAINS COMFORTABLE AND FREE OF PAIN.
[2023-06-14 09:08] VITALS: BP 150/97
--- NOTE | 2023-06-14 09:20 | NUR ---
IN PT ROOM FOR VS AND ASSESSMENT. NO ACUTE CHANGES FROM PREVIOUS ASSESSMENT AT THIS TIME. VS TAKEN. PT REMAINS ALERT AND PER TEXTILE TECHNICAL OFFICER BACK TO BASELINE FOR BEHAVIOR. PT >90% VIA RA, RESPIRATIONS EVEN AND UNLABORED, NO SIGNS OF DISTRESS. TEXTILE TECHNICAL OFFICER NOW ASSISTING PT WITH GETTING DRESSED AND TO URINE VOID (UNMEASURED). CALL LIGHT WITHIN REACH.
--- NOTE | 2023-06-14 09:25 | NUR ---
DISCHARGE EDUCATION PROVIDED AT THIS TIME TO TRANSPORTATION ENGINEER, VERBAL UNDERSTANDING STATED. IV DC'ED, WNL. PT OFF OF UNIT VIA WC TO PASSENGER SIDE OF VEHICLE AT THIS TIME, NO FURTHER QUESTIONS OR NEEDS PER TRANSPORTATION ENGINEER. ALL BELONGINGS WITHIN PT POSSESSION AT THIS TIME.
== END 2023-06-14 09:25 | disposition home or self-care (01) ==
LOC: DS 05:30 → OPS 05:30 → DS 07:00 → OPS 07:00
PROVIDERS: ATTEND Dentist General Practice
DX: Z01.20 Encounter for dental examination and cleaning without abnormal findings (principal); F31.81 Bipolar II disorder; F79 Unspecified intellectual disabilities; E03.9 Hypothyroidism, unspecified; E78.00 Pure hypercholesterolemia, unspecified; F20.9 Schizophrenia, unspecified; G80.9 Cerebral palsy, unspecified; N40.1 Benign prostatic hyperplasia with lower urinary tract symptoms; E11.9 Type 2 diabetes mellitus without complications; Z79.899 Other long term (current) drug therapy
CPT/HCPCS: 80048; A9270; J0330; J1100; J1885; J2250; J2405; J2704; J2765; J3010; J3490; J7121

== ENCOUNTER 2024-04-19 17:54 | Emergency (ER) | payer MEDICARE, OTHER ==
[~2024-04-19] VITALS: Ht 182.9 cm; Wt 89.0 kg
[~2024-04-19 17:54] MED LIST changes: +ASPIRIN81 MG PO; -BASE B,POLYETHYL1 GM MC; +EAR WAX DROPS15 M1 AU; -EAR WAX DROPS15 M1 OTIC; +LEVOTHYROXINE50 MC1 PO; -MILK OF MA2400 MG/10 PO; +MIRALAX17 GM PO; +MYRBETRIQ25 MG PO; +NASAL MOISTURIZ88 ML NAS; +TRIPLE ANTIBIOT28 G1 TOP
[2024-04-19] MEDS ORDERED: LIDOCAINE 2% VISCOUS 6 ML SYR TOP ONE ×2 (18:30→19:00)
[2024-04-19 18:32] LABS: BASOPHILS 0.6 % (0-2); EOSINOPHILS 0.8 % (0-6); HEMATOCRIT 38.9 % (35.0-50.0); LYMPHOCYTES 9.7 % (24-44); MCH 31.9 (27-36); MCHC 33.5 g/dl (30-36); MCV 95.3 fl (81-99); MONOCYTES 12.6 % (0-12); NEUTROPHILS 76.3 % (39-80); PLATELET COUNT 152 K/uL (140-440); RBC 4.08 M/ul (4.3-5.7); RDW 13.8 (10.5-15.0)
[2024-04-19] MEDS ORDERED: LIDOCAINE 2% VISCOUS 6 ML SYR ONE (18:40)
[2024-04-19 18:47] LABS: ALBUMIN 2.8 g/dL (3.4-5.0); ALBUMIN/GLOBULIN RATIO 0.72 (1.1-2.4); ANION GAP 17.2 (7-21); BILIRUBIN, TOTAL 0.5 ng/dL (0.2-1.0); BUN/CREATININE RATIO 13.49 (6.0-28.6); CALCIUM 8.5 mg/dL (8.5-10.1); CREATININE, SERUM 1.26 mg/dL (0.70-1.30); POTASSIUM 4.2 mmol/L (3.5-5.1); PROTEIN, TOTAL 6.7 g/dL (6.4-8.2)
[2024-04-19 19:00] LABS: BILIRUBIN, URINE NEGATIVE (negative); BLOOD/HGB, URINE MODERATE (Negative); KETONE, URINE TRACE (Negative); LEUK ESTERASE, URINE NEGATIVE (negative); NITRITE, URINE NEGATIVE (negative); PH, URINE 5.5 (5-7)
[2024-04-19 19:12] LABS: BACTERIA, URINE 2+ /hpf (negative); CASTS, URINE NONE SEEN \\lpf; COLLECTION TYPE, URINE CLEAN CATCH; CRYSTALS, URINE NONE SEEN (0-1+); EPITHELIAL CELLS, URINE NONE SEEN /lpf (0-1+); REFLEX CULTURE, URINE Yes (No)
[2024-04-19] MEDS ORDERED: AZITHROMYCIN 250 MG HOME.PACK PO ONE (19:15)
[2024-04-19] MEDS ORDERED: CEFTRIAXONE/SODIUM CHLORIDE 1 GM/100 ML PIGGYBACK IV ONE (19:15)
[2024-04-19 19:21] LABS: INFLUENZA B NAA NEGATIVE (NEGATIVE); RESPIRATORY SYNCYTIAL VIR NAA NEGATIVE (NEGATIVE)
[2024-04-19 19:47] VITALS: BP 108/72
== END 2024-04-19 19:47 | disposition home or self-care (01) ==
LOC: ED 17:54
PROVIDERS: Emergency Medicine
DX: J18.9 Pneumonia, unspecified organism (principal); I10 Essential (primary) hypertension; E03.9 Hypothyroidism, unspecified; F31.9 Bipolar disorder, unspecified; Z79.899 Other long term (current) drug therapy; Z79.890 Hormone replacement therapy
CPT/HCPCS: 36415; 51701; 71045; 80053; 81001; 85025; 87088; 87502; 99285-25; J0696; U0002

== ENCOUNTER 2024-07-16 14:12 | Emergency (ER) | payer MEDICARE, OTHER ==
[~2024-07-16] VITALS: Ht 182.9 cm; Wt 83.9 kg
[~2024-07-16 14:12] MED LIST changes: -NASAL MOISTURIZ88 ML NAS; +TUSSIN DM PO; -TUSSIN100 MG/51 PO; +[UNRECOGNIZED DRUG - OTHER] NAS
[2024-07-16] MEDS ORDERED: ALBUTEROL/IPRATROPIUM 3 ML NEB INH PRN (14:45)
[2024-07-16 14:46] LABS: BASOPHILS 0.5 % (0-2); EOSINOPHILS 0.4 % (0-6); HEMATOCRIT 35.3 % (35.0-50.0); HEMOGLOBIN 12.1 g/dL (12.0-18.0); LYMPHOCYTES 11.7 % (24-44); MCH 32.2 (27-36); MCHC 34.2 g/dl (30-36); MCV 94.1 fl (81-99); MONOCYTES 16.9 % (0-12); NEUTROPHILS 70.5 % (39-80); PLATELET COUNT 164 K/uL (140-440); RBC 3.76 M/ul (4.3-5.7); RDW 13.9 (10.5-15.0)
[2024-07-16 15:07] LABS: ALBUMIN/GLOBULIN RATIO 0.81 (1.1-2.4); ALKALINE PHOSPHATASE 97 U/L (46-116); ALT (SGPT) 42 U/L (14-59); ANION GAP 13.1 (7-21); AST (SGOT) 49 U/L (15-37); BILIRUBIN, TOTAL 0.5 mg/dL (0.2-1.0); BUN/CREATININE RATIO 13.54 (6.0-28.6); CALCIUM 8.7 mg/dL (8.5-10.1); CARBON DIOXIDE 27 mmol/L (21-32); CHLORIDE 97 mmol/L (98-107); CREATININE, SERUM 0.96 mg/dL (0.70-1.30); GLOMERULAR FILTRATION RATE,EST 87 mL/min (>60); MAGNESIUM 1.9 mg/dL (1.8-2.4); POTASSIUM 4.1 mmol/L (3.5-5.1); PROTEIN, TOTAL 6.7 g/dL (6.4-8.2); UREA NITROGEN 13 mg/dL (7-18)
[2024-07-16 16:02] LABS: BILIRUBIN, URINE NEGATIVE (negative); BLOOD/HGB, URINE TRACE-I (Negative); KETONE, URINE TRACE (Negative); LEUK ESTERASE, URINE NEGATIVE (negative); NITRITE, URINE NEGATIVE (negative)
[2024-07-16 16:07] LABS: BACTERIA, URINE NONE SEEN /hpf (negative); CASTS, URINE NONE SEEN \\lpf; COLLECTION TYPE, URINE CLEAN CATCH; CRYSTALS, URINE NONE SEEN (0-1+); EPITHELIAL CELLS, URINE NONE SEEN /lpf (0-1+); REFLEX CULTURE, URINE No (No); WHITE BLOOD CELLS, URINE 0-1 /HPF (0-5)
[2024-07-16 16:40] LABS: INFLUENZA B NAA NEGATIVE (NEGATIVE); RESPIRATORY SYNCYTIAL VIR NAA NEGATIVE (NEGATIVE)
[2024-07-16 17:24] VITALS: BP 118/86
--- NOTE | 2024-07-17 13:01 | EKG ---
[facility] [address] [facility] [place] [address] Signed Normal sinus rhythm Normal ECG When compared with ECG of 30-JUN-2023 19:10, No significant change was found Confirmed by Long Finney DO ([id number]) on 07/17/2024 1:01:04 PM Electronically Signed By: LONG FINNEY DO 07/17/24 1301 PATIENT NAME: MONTYJAZZY Corley Electrocardiogram DATE OF : 59 PHYSICIAN: LONG FINNEY DO REPORT #: [id number] REPORT IS CONFIDENTIAL AND NOT TO BE RELEASED WITHOUT AUTHORIZATION
== END 2024-07-16 17:24 | disposition home or self-care (01) ==
LOC: ED 14:12
PROVIDERS: Emergency Medicine
DX: B34.9 Viral infection, unspecified (principal); G80.9 Cerebral palsy, unspecified; E03.9 Hypothyroidism, unspecified; I10 Essential (primary) hypertension; F31.9 Bipolar disorder, unspecified; Z91.048 Other nonmedicinal substance allergy status; Z79.899 Other long term (current) drug therapy; Z79.890 Hormone replacement therapy
CPT/HCPCS: 36415; 71045; 80053; 81001; 83735; 84484; 85025; 87502; 93005; 93010; 94640; 99285; U0002

== ENCOUNTER 2024-07-18 15:11 | Inpatient (IN) | payer MEDICARE, OTHER ==
[~2024-07-18] VITALS: Ht 182.9 cm; Wt 89.9 kg
--- OUTSIDE RECORDS SUMMARY | 2024-07-18 15:14 | XMS ---
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 MILLAN Security Direct Support Professional Home Health Events No recent Security Events currently on file CRITERIA MET - [facility] - 2 Visits in 30 Days CARE PROVIDERS -, Jose D Dental+ Dentist: Professional Employer Consultant Current [place] PHONE: [phone] -Yamilka- Dentist: Professional Employer Consultant Current [facility] PHONE: [phone] [facility]: [facility] Current FAMILY PHONE: [phone] FRITZ LLOYD [facility] Current PHONE: Unknown MABEL [facility] Current PHONE: [phone] Care Guidelines exist for the following facilities: [facility] ( 10/26/2019 ) [facility] VISIT COUNT (12 MO.) 4 DEMAR Guerrero TOTAL 4 NOTE: Visits indicate total known visits. ED/UCC VISIT TRACKING (12 MO.) 07/18/2024 15:[address] [facility] [place] TYPE: Emergency COMPLAINT: - WEAKNESS 07/16/2024 14:[address] [facility] [place] TYPE: Emergency COMPLAINT: - WEAKNESS 04/19/2024 17:[address] [facility] [place] TYPE: Emergency COMPLAINT: - COLD SYMPTOMS DIAGNOSES: - Bipolar disorder, unspecified - Essential (primary) hypertension - Hormone replacement therapy - Hypothyroidism, unspecified - Other intermediate (current) drug therapy - Pneumonia, unspecified organism - Weakness 08/01/2023 22:[address] [facility] [place] TYPE: Emergency COMPLAINT: - POSS UTI DIAGNOSES: - Anxiety disorder, unspecified - Benign prostatic hyperplasia without lower urinary tract symptoms - Bipolar disorder, unspecified - Cerebral palsy, unspecified - Cough, unspecified - Dehydration - Essential (primary) hypertension - Hormone replacement therapy - Hypo-osmolality and hyponatremia - Hypothyroidism, unspecified - Intermittent explosive disorder - longterm (current) use of oral hypoglycemic drugs - Moderate intellectual disabilities - Other termination clerk (current) drug therapy - Pure hypercholesterolemia, unspecified - Schizophrenia, unspecified - Weakness INPATIENT VISIT TRACKING (12 MO.) No inpatient visits to display in this time frame [email or web address]
[2024-07-18] MEDS ORDERED: ALBUTEROL/IPRATROPIUM 3 ML NEB ONE (15:16)
[2024-07-18] MEDS ORDERED: ALBUTEROL/IPRATROPIUM 3 ML NEB INH ONE ×2 (15:30)
[2024-07-18 15:36] LABS: HEMATOCRIT 34.9 % (35.0-50.0); HEMOGLOBIN 12.2 g/dL (12.0-18.0); MCH 32.3 (27-36); MCHC 34.9 g/dl (30-36); MCV 92.4 fl (81-99); PLATELET COUNT 143 K/uL (140-440); RBC 3.77 M/ul (4.3-5.7); RDW 13.6 (10.5-15.0)
[2024-07-18 15:57] LABS: ALBUMIN 2.8 g/dL (3.4-5.0); ALBUMIN/GLOBULIN RATIO 0.7 (1.1-2.4); BILIRUBIN, TOTAL 0.7 mg/dL (0.2-1.0); BUN/CREATININE RATIO 10.52 (6.0-28.6); CALCIUM 8.6 mg/dL (8.5-10.1); CREATININE, SERUM 1.14 mg/dL (0.70-1.30); PROTEIN, TOTAL 6.8 g/dL (6.4-8.2); VALPROIC ACID 86 ug/mL (50-100)
[2024-07-18 16:03] LABS: BANDS, MANUAL DIFF 6; LYMPHOCYTES, MANUAL DIFF 18; MONOCYTES, MANUAL DIFF 12; NEUTROPHILS, MANUAL DIFF 64
[2024-07-18] MEDS ORDERED: SODIUM CHLORIDE 0.9% 1,000 ML IV ONE ×2 (16:15→18:00)
[2024-07-18 16:27] LABS: INFLUENZA B NAA NEGATIVE (NEGATIVE); RESPIRATORY SYNCYTIAL VIR NAA NEGATIVE (NEGATIVE)
[2024-07-18 17:29] LABS: BILIRUBIN, URINE NEGATIVE (negative); BLOOD/HGB, URINE SMALL (Negative); KETONE, URINE SMALL (Negative); LEUK ESTERASE, URINE NEGATIVE (negative); NITRITE, URINE NEGATIVE (negative)
[2024-07-18 17:36] LABS: BACTERIA, URINE NONE SEEN /hpf (negative); CASTS, URINE NONE SEEN \\lpf; COLLECTION TYPE, URINE CLEAN CATCH; CRYSTALS, URINE NONE SEEN (0-1+); EPITHELIAL CELLS, URINE SQUAMOUS 1+ /lpf (0-1+); REFLEX CULTURE, URINE No (No); WHITE BLOOD CELLS, URINE 0-1 /HPF (0-5)
[2024-07-18] MEDS ORDERED: CEFTRIAXONE SODIUM 1 GM in SODIUM CHLORIDE 0.9% 100 ML IV ONE (17:45)
[2024-07-18] MEDS ORDERED: CEFTRIAXONE SODIUM 1 GM VIAL IV ONE (18:03)
[2024-07-18] MEDS ORDERED: ACETAMINOPHEN 325 MG TAB PO PRN (19:45)
[2024-07-18] MEDS ORDERED: LACTATED RINGER'S 1,000 ML IV SCH (19:45)
[2024-07-18] MEDS ORDERED: ondansetron HCL 4 MG/2 ML VIAL IV PRN (19:45)
[2024-07-18] MEDS ORDERED: AZITHROMYCIN 250 MG TAB PO SCH (19:45)
[2024-07-18] MEDS ORDERED: ENOXAPARIN SODIUM 40 MG/0.4 ML SYR SUB-Q SCH (20:00)
[2024-07-18] MEDS ORDERED: busPIRone HCL 15 MG TAB PO SCH (21:00)
[2024-07-18] MEDS ORDERED: DIVALPROEX SODIUM 500 MG TABEC PO SCH (21:00)
[2024-07-18 21:25] VITALS: BP 127/78
[2024-07-18 21:27] VITALS: BP 127/78
[2024-07-18] MEDS ORDERED: ALBUTEROL SULFATE 0.083% 3 ML VIAL INH PRN (21:30)
[2024-07-19] VITALS (8 sets, daily range): BP systolic 22–130; BP diastolic 55–85
[2024-07-19 05:42] LABS: BASOPHILS 0.3 % (0-2); HEMATOCRIT 33.5 % (35.0-50.0); HEMOGLOBIN 11.4 g/dL (12.0-18.0); LYMPHOCYTES 32.5 % (24-44); MCH 32.1 (27-36); MCHC 34.1 g/dl (30-36); MONOCYTES 14.6 % (0-12); NEUTROPHILS 52.6 % (39-80); PLATELET COUNT 126 K/uL (140-440); RBC 3.57 M/ul (4.3-5.7); RDW 13.7 (10.5-15.0)
[2024-07-19 05:47] LABS: ANION GAP 12.2 (7-21); BUN/CREATININE RATIO 10.2 (6.0-28.6); CALCIUM 8.4 mg/dL (8.5-10.1); CREATININE, SERUM 0.98 mg/dL (0.70-1.30); MAGNESIUM 1.8 mg/dL (1.8-2.4); POTASSIUM 4.2 mmol/L (3.5-5.1)
[2024-07-19] MEDS ORDERED: LEVOTHYROXINE SODIUM 50 MCG TAB PO SCH (07:00)
[2024-07-19] MEDS ORDERED: LACTATED RINGER'S 1,000 ML IV PRN (08:00)
[2024-07-19] MEDS ORDERED: DIVALPROEX SODIUM 500 MG TABEC PO SCH (09:00)
[2024-07-19] MEDS ORDERED: FINASTERIDE 5 MG TAB PO SCH (09:00)
[2024-07-19 11:30] LABS: INFLUENZA B NAA NEGATIVE (NEGATIVE); RESPIRATORY SYNCYTIAL VIR NAA NEGATIVE (NEGATIVE)
[2024-07-19] MEDS ORDERED: PHARMACY RENAL DOSE ADJUSTMENT 1 DOSE MISC PO SCH (12:00)
[2024-07-19] MEDS ORDERED: MYRBETRIQ50 MG PO (13:23)
[2024-07-19] MEDS ORDERED: DIVALPROEX SODIUM 250 MG TABEC PO SCH (16:00)
[2024-07-19] MEDS ORDERED: ATORVASTATIN 10 MG TAB PO SCH (17:00)
[2024-07-19] MEDS ORDERED: LURASIDONE HCL 40 MG TABLET PO SCH (17:00)
[2024-07-19] MEDS ORDERED: CEFTRIAXONE SODIUM 2 GM VIAL ONE (17:41)
[2024-07-19] MEDS ORDERED: CEFTRIAXONE SODIUM 2 GM in SODIUM CHLORIDE 0.9% 100 ML IV SCH (18:00)
--- NOTE | 2024-07-19 21:34 | EKG ---
[facility] [address] [facility] [place], [place] [address] Signed Sinus tachycardia Otherwise normal ECG No previous ECGs available Confirmed by Long Finney DO ([id number]) on 07/19/2024 9:33:50 PM Electronically Signed By: LONG FINNEY DO 07/19/24 2134 PATIENT NAME: JAZZY MILLAN Jory Electrocardiogram DATE OF : 59 PHYSICIAN: LONG FINNEY DO REPORT #: [id number] REPORT IS CONFIDENTIAL AND NOT TO BE RELEASED WITHOUT AUTHORIZATION
[2024-07-20] VITALS (7 sets, daily range): BP systolic 129–148; BP diastolic 66–90
[2024-07-20 05:32] LABS: BASOPHILS 0.5 % (0-2); EOSINOPHILS 0.4 % (0-6); HEMOGLOBIN 11.6 g/dL (12.0-18.0); LYMPHOCYTES 32.5 % (24-44); MCH 32.1 (27-36); MCHC 34.2 g/dl (30-36); MCV 93.9 fl (81-99); NEUTROPHILS 49.6 % (39-80); PLATELET COUNT 141 K/uL (140-440); RBC 3.63 M/ul (4.3-5.7); RDW 13.9 (10.5-15.0)
[2024-07-20 05:54] LABS: ANION GAP 10.8 (7-21); BUN/CREATININE RATIO 9.09 (6.0-28.6); CREATININE, SERUM 0.88 mg/dL (0.70-1.30); MAGNESIUM 2.1 mg/dL (1.8-2.4); POTASSIUM 3.8 mmol/L (3.5-5.1)
[2024-07-20] MEDS ORDERED: CEFTRIAXONE SODIUM 2 GM VIAL ONE (16:56)
[2024-07-21] VITALS (7 sets, daily range): BP systolic 92–160; BP diastolic 53–82
[2024-07-21 05:29] LABS: BASOPHILS 0.5 % (0-2); EOSINOPHILS 1.3 % (0-6); HEMATOCRIT 34.2 % (35.0-50.0); HEMOGLOBIN 11.6 g/dL (12.0-18.0); LYMPHOCYTES 34.2 % (24-44); MCH 31.7 (27-36); MCV 93.3 fl (81-99); MONOCYTES 15.9 % (0-12); NEUTROPHILS 48.1 % (39-80); PLATELET COUNT 146 K/uL (140-440); RBC 3.66 M/ul (4.3-5.7)
[2024-07-21 05:41] LABS: ANION GAP 12.7 (7-21); BUN/CREATININE RATIO 9.63 (6.0-28.6); CALCIUM 8.8 mg/dL (8.5-10.1); CREATININE, SERUM 0.83 mg/dL (0.70-1.30); POTASSIUM 3.7 mmol/L (3.5-5.1)
[2024-07-21] MEDS ORDERED: CEFTRIAXONE SODIUM 2 GM VIAL ONE (17:03)
[2024-07-22] VITALS (10 sets, daily range): BP systolic 114–139; BP diastolic 69–82
[2024-07-22 06:13] LABS: ANION GAP 9.1 (7-21); BUN/CREATININE RATIO 18.51 (6.0-28.6); CALCIUM 8.7 mg/dL (8.5-10.1); CREATININE, SERUM 0.81 mg/dL (0.70-1.30); POTASSIUM 4.1 mmol/L (3.5-5.1)
[2024-07-23 05:24] VITALS: BP 109/56
[2024-07-23 05:25] VITALS: BP 109/56
[2024-07-23 10:15] VITALS: BP 121/87
[2024-07-23 10:18] VITALS: BP 121/87
[2024-07-23] MEDS ORDERED: LEVOFLOXACIN750 MG PO (13:37)
[2024-07-23 14:54] VITALS: BP 116/70
[2024-07-23 15:32] VITALS: BP 116/70
== END 2024-07-23 15:52 | disposition home or self-care (01) | DRG 193 ==
LOC: ED 15:11 → MS 19:45
PROVIDERS: Emergency Medicine; Student in an Organized Health Care Education/Training Program; ADMIT Student in an Organized Health Care Education/Training Program; ATTEND Student in an Organized Health Care Education/Training Program
DX: J18.9 Pneumonia, unspecified organism (principal); J96.01 Acute respiratory failure with hypoxia; E87.1 Hypo-osmolality and hyponatremia; K44.9 Diaphragmatic hernia without obstruction or gangrene; G80.9 Cerebral palsy, unspecified; F31.9 Bipolar disorder, unspecified; E03.9 Hypothyroidism, unspecified; F41.9 Anxiety disorder, unspecified; N40.0 Benign prostatic hyperplasia without lower urinary tract symptoms; I10 Essential (primary) hypertension; K31.84 Gastroparesis; Z91.048 Other nonmedicinal substance allergy status; E78.00 Pure hypercholesterolemia, unspecified; Z79.899 Other long term (current) drug therapy; Z79.890 Hormone replacement therapy
CPT/HCPCS: 36415; 71045; 71250; 74176; 80048; 80053; 80164; 81001; 83605; 83735; 83880; 84484; 85025; 87502; 93005; 93010; 94640; 94667; 94668; 94762; 94799; A9270; J1650; J7030; J7121; U0002

== ENCOUNTER 2024-08-12 18:09 | Inpatient (IN) | payer MEDICARE, OTHER ==
[~2024-08-12] VITALS: Ht 182.9 cm; Wt 88.9 kg
[~2024-08-12 18:09] MED LIST changes: +LEVOFLOXACIN750 MG PO; +MYRBETRIQ50 MG PO
--- OUTSIDE RECORDS SUMMARY | 2024-08-12 18:16 | XMS ---
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 - 2 Visits in 30 Days CARE PROVIDERS -, Jose D Dental+ Dentist: Courseware Developer Current [place] PHONE: [phone] -Yamilka- Dentist: Courseware Developer Current [facility] PHONE: [phone] [facility]/[place]: [facility] Current FAMILY PHONE: [phone] FRITZ LLOYD [facility] Current PHONE: Unknown MABEL [facility] Current PHONE: [phone] Care Guidelines exist for the following facilities: [facility] ( 10/26/2019 ) [place] VISIT COUNT (12 MO.) 4 DEMAR Guerrero TOTAL 4 NOTE: Visits indicate total known visits. ED/UCC VISIT TRACKING (12 MO.) 08/12/2024 18:[address] [facility] [place] TYPE: Emergency COMPLAINT: - STROKE 07/18/2024 15:[address] [facility] [place] TYPE: Emergency COMPLAINT: - WEAKNESS 07/16/2024 14:[address] [facility] [place] TYPE: Emergency COMPLAINT: - WEAKNESS DIAGNOSES: - Bipolar disorder, unspecified - Cerebral palsy, unspecified - Essential (primary) hypertension - Hormone replacement therapy - Hypothyroidism, unspecified - Other manager terminal (current) drug therapy - Other nonmedicinal substance allergy status - Viral infection, unspecified - Weakness 04/19/2024 17:54 [facility] [place] TYPE: Emergency COMPLAINT: - COLD SYMPTOMS DIAGNOSES: - Bipolar disorder, unspecified - Essential (primary) hypertension - Hormone replacement therapy - Hypothyroidism, unspecified - Other detention (current) drug therapy - Pneumonia, unspecified organism - Weakness INPATIENT VISIT TRACKING (12 MO.) 07/18/2024 19:45 [facility] [place] TYPE: Medical Surgical COMPLAINT: - AHRF/PNA DIAGNOSES: - Acute respiratory failure with hypoxia - Acute respiratory failure with hypoxia - Anxiety disorder, unspecified - Anxiety disorder, unspecified - Benign prostatic hyperplasia without lower urinary tract symptoms - Benign prostatic hyperplasia without lower urinary tract symptoms - Bipolar disorder, unspecified - Bipolar disorder, unspecified - Cerebral palsy, unspecified - Cerebral palsy, unspecified - Diaphragmatic hernia without obstruction or gangrene - Diaphragmatic hernia without obstruction or gangrene - Essential (primary) hypertension - Essential (primary) hypertension - Gastroparesis - Gastroparesis - Hormone replacement therapy - Hormone replacement therapy - Hypo-osmolality and hyponatremia - Hypo-osmolality and hyponatremia - Hypothyroidism, unspecified - Hypothyroidism, unspecified - Other detention (current) drug therapy - Other detention (current) drug therapy - Other nonmedicinal substance allergy status - Other nonmedicinal substance allergy status - Pneumonia, unspecified organism - Pure hypercholesterolemia, unspecified - Pure hypercholesterolemia, unspecified [email or web address]
[2024-08-12] MEDS ORDERED: SODIUM CHLORIDE 0.9% 1,000 ML IV ONE (18:30)
[2024-08-12] MEDS ORDERED: CEFTRIAXONE SODIUM 2 GM in SODIUM CHLORIDE 0.9% 100 ML IV ONE ×2 (18:30→21:00)
[2024-08-12] MEDS ORDERED: CEFTRIAXONE SODIUM 2 GM VIAL ONE (19:06)
[2024-08-12 19:15] LABS: BILIRUBIN, URINE NEGATIVE (negative); BLOOD/HGB, URINE SMALL (Negative); KETONE, URINE NEGATIVE (Negative); LEUK ESTERASE, URINE NEGATIVE (negative); NITRITE, URINE NEGATIVE (negative)
[2024-08-12 19:16] LABS: BASOPHILS 0.8 % (0-2); EOSINOPHILS 2.1 % (0-6); LYMPHOCYTES 36.8 % (24-44); MCH 31.8 (27-36); MCHC 34.3 g/dl (30-36); MCV 92.7 fl (81-99); MONOCYTES 15.2 % (0-12); NEUTROPHILS 45.1 % (39-80); PLATELET COUNT 138 K/uL (140-440); RBC 3.78 M/ul (4.3-5.7); RDW 14.3 (10.5-15.0)
[2024-08-12 19:25] LABS: EPITHELIAL CELLS, URINE NONE SEEN /lpf (0-1+); RED BLOOD CELLS, URINE 0-1 /hpf (0-5); WHITE BLOOD CELLS, URINE 0-1 /HPF (0-5)
[2024-08-12 19:26] LABS: BACTERIA, URINE NONE SEEN /hpf (negative); CASTS, URINE NONE SEEN \\lpf; COLLECTION TYPE, URINE CLEAN CATCH; CRYSTALS, URINE NONE SEEN (0-1+); INR 0.91 (0.80-1.30); PROTIME 12.2 Sec (11.2-14.2); REFLEX CULTURE, URINE No (No)
[2024-08-12 19:30] LABS: ALBUMIN 3.1 g/dL (3.4-5.0); ALBUMIN/GLOBULIN RATIO 0.86 (1.1-2.4); BILIRUBIN, TOTAL 0.4 mg/dL (0.2-1.0); BUN/CREATININE RATIO 12.35 (6.0-28.6); CALCIUM 8.7 mg/dL (8.5-10.1); CREATININE, SERUM 0.89 mg/dL (0.70-1.30); PROTEIN, TOTAL 6.7 g/dL (6.4-8.2)
[2024-08-12 19:34] LABS: PARTIAL THROMBOPLASTIN TIME 25.8 Sec (22.9-41.3)
[2024-08-12 20:25] LABS: CORONAVIRUS COVID-19 AG NEGATIVE (NEGATIVE); INFLUENZA A AG NEGATIVE (NEGATIVE); INFLUENZA B AG NEGATIVE (NEGATIVE)
[2024-08-12 20:25] LABS: LACTIC ACID, BLOOD 1.5 mmol/L (0.4-2.0)
[2024-08-12] MEDS ORDERED: AZITHROMYCIN 500 MG in DEXTROSE 5% 250 ML IV ONE (21:00)
[2024-08-12] MEDS ORDERED: IBLOOD GLUCOSE TEST STRIP 1 EA TEST XX PRN (22:00)
[2024-08-12] MEDS ORDERED: DEXTROSE 50% 50 ML SYR IV PRN ×2 (22:00)
[2024-08-12] MEDS ORDERED: ondansetron HCL 4 MG/2 ML VIAL IV PRN (22:00)
[2024-08-12] MEDS ORDERED: DEXTROSE 5% 1,000 ML IV PRN (22:00)
[2024-08-12] MEDS ORDERED: GLUCAGON,HUMAN RECOMBINANT 1 MG/ML VIAL SUB-Q PRN (22:00)
[2024-08-12] MEDS ORDERED: ACETAMINOPHEN 325 MG TAB PO PRN (22:00)
--- NOTE | 2024-08-12 22:19 | EKG ---
[facility] [address] [facility] [place] [address] Signed Normal sinus rhythm Nonspecific ST abnormality Abnormal ECG When compared with ECG of 18-JUL-2024 15:15, No significant change was found Confirmed by Angie Summers MD () on 08/12/2024 10:19:12 PM Electronically Signed By: ANGIE SUMMERS MD 08/12/24 2219 PATIENT NAME: JAZZY MILLAN Electrocardiogram DATE OF : 59 PHYSICIAN: ANGIE SUMMERS MD REPORT #: [id number] REPORT IS CONFIDENTIAL AND NOT TO BE RELEASED WITHOUT AUTHORIZATION
[2024-08-12 23:03] VITALS: BP 141/81
--- NOTE | 2024-08-12 23:15 | NUR ---
pt ARRIVED TO THE FLOOR VIA STRETCHER. pt TRANSFERED TO THE BED VIA SLIDE SHEET. CAREGIVER CAME TO THE WITH pt AND WAS ABLE ASSISST WITH THE ASSESSMENT AND ADMISSION. pt USED THE URINAL AND PASSED THE BEDSIDE SWALLOW EVAL. NO OTHER NEEDS AT THIS TIME. CALL LIGHT WITHIN REACH. pt ABLE TO MOVE LEFT ARM AT THIS TIME.
[2024-08-12] MEDS ORDERED: LURASIDONE HCL40 MG (23:34)
[2024-08-12 23:59] VITALS: BP 141/81
--- NOTE | 2024-08-13 01:53 | NUR ---
BED ALARM SOUNDING. pt ASSISTED TO VOID IN URINAL. INCONTINENT OF URINE IN ATTENDS, NEW ATTENDS PLACED. pt ASSISTS WITH CARIDAD CARE, HANDS WASHED WITH WIPES. REPOSITIONED IN BED. TV OFF, LIGHTS OFF IN ROOM. BED ALARM ON.
--- NOTE | 2024-08-13 02:10 | NUR ---
pt RESTING IN THE BED WITH EYES CLOSED. RR EVEN AND UNLABORED. CALL LIGHT WITHIN REACH.
--- NOTE | 2024-08-13 04:17 | NUR ---
IN RM TO FIX pt TELE LEADS. pt ROLLED OVER AND DENIES ANY OTHER NEEDS AT THIS TIME. CALL LIGHT WITHIN REACH.
[2024-08-13 05:56] LABS: BASOPHILS 0.6 % (0-2); EOSINOPHILS 2.1 % (0-6); HEMATOCRIT 34.3 % (35.0-50.0); HEMOGLOBIN 11.9 g/dL (12.0-18.0); LYMPHOCYTES 33.5 % (24-44); MCHC 34.5 g/dl (30-36); MCV 92.8 fl (81-99); MONOCYTES 12.7 % (0-12); NEUTROPHILS 51.1 % (39-80); PLATELET COUNT 118 K/uL (140-440)
[2024-08-13 06:15] VITALS: BP 120/81
[2024-08-13 06:23] VITALS: BP 120/81
[2024-08-13 06:26] LABS: ALBUMIN 2.9 g/dL (3.4-5.0); ALBUMIN/GLOBULIN RATIO 0.83 (1.1-2.4); ANION GAP 13.1 (7-21); BILIRUBIN, TOTAL 0.3 mg/dL (0.2-1.0); BUN/CREATININE RATIO 8.23 (6.0-28.6); CALCIUM 8.8 mg/dL (8.5-10.1); CREATININE, SERUM 0.85 mg/dL (0.70-1.30); PHOSPHORUS, INORGANIC 4.3 mg/dL (2.5-4.9); POTASSIUM 4.1 mmol/L (3.5-5.1); PROTEIN, TOTAL 6.4 g/dL (6.4-8.2)
--- NOTE | 2024-08-13 07:47 | NUR ---
RECIEVED BEDSIDE REPORT FROM PENNY HAWTHORNE. PT IS SLEEPING SOUNDLY, BREATHING EVEN AND UNLABORED. NO CAREGIVER AT BEDSIDE. NO NEEDS AT THIS TIME.
[2024-08-13] MEDS ORDERED: INSULIN LISPRO 100 UNIT/ML ML SUB-Q SCH ×2 (08:00→17:00)
[2024-08-13] MEDS ORDERED: IBLOOD GLUCOSE TEST STRIP 1 EA TEST VI SCH ×2 (08:00→17:00)
[2024-08-13] MEDS ORDERED: LORazepam 1 MG TAB PO PRN (09:00)
[2024-08-13 09:02] VITALS: BP 136/77
--- NOTE | 2024-08-13 09:44 | NUR ---
PT WALKED A LAP WITH PT/OT. CLEARED FOR SWALLOWING BY ST. PT REPORTED ONE EPISODE OF "WOBBLING", BUT DID NOT HAVE GLASSES ON AT THE TIME. PT UNABLE TO COMPLETE MRI DUE TO PANIC. MD ORDERED PO LORAZEPAM TO BE GIVEN WHEN IMAGAING CALLS TO CONFIRM TIME OF EXAM.
--- NOTE | 2024-08-13 10:11 | NUR ---
CHART NOTES PRINTED FOR ASA GRAHAM CAREGIVER.
--- NOTE | 2024-08-13 10:25 | NUR ---
UR CLINICAL REVIEW: 2MN WILMAN, MEETS OBS CRITERIA FOR TIA. NEEDED FURTHER STUDIES, MRI AND ECHO, AND EVAL BY PT/OT/ST MEDICARE OBS 08/12/24 @ 2200 ORDER MATCHES REG NO AUTH REQURIED PER MEDICARE RULES PLAN TO DC TO [facility] WHEN MEDICALLY STABLE. 08/14/24
--- NOTE | 2024-08-13 10:30 | NUR ---
PATIENT CAREGIVER ASA CALLED. PATIENT LIVES AT [facility]. NO STEPS INTO THE FACILITY. PATIENT DOES NOT NEED WALKER, WHEELCHAIR AND CANE. DENIES OXYGEN AND CPAP USE. PATIENT ABLE TO FEED SELF. ONLY THING THE FACILITY HELPS WITH IS CARIDAD CARE. HE IS INDEPENDENT WITH AMBULATION AND ABLE TO PARTICPATE IN FACILITY ACTIVITIES. WEARS GLASSES ALL THE TIME. NO CM NEEDS AT THIS TIME.
--- NOTE | 2024-08-13 11:40 | NUR ---
ECHO IN WITH PATIENT. SHE WILL CALL WITH ANY ISSUES.
[2024-08-13] MEDS ORDERED: PHARMACY RENAL DOSE ADJUSTMENT 1 DOSE MISC PO SCH (12:00)
--- NOTE | 2024-08-13 12:25 | NUR ---
PT SITTING UP IN BED HAVING LUNCH. PRN ATIVAN GIVEN FOR PRE-MED FOR MRI THIS AFTERNOON. SHEET FINISHER CALLED AND WILL BE DOWN IN ABOUT 30-45 MINUTES FOR PATIENT. BED ALARM PLACED ON AT THIS TIME. PT TOLERATED MED WITH SIP OF WATER, NO ISSUES. CALL LIGHT WITHIN REACH, PT LEFT EATING/WATCHING TV AT THIS TIME.
[2024-08-13 13:02] VITALS: BP 139/77
--- NOTE | 2024-08-13 14:47 | NUR ---
UR CLINICAL REVIEW: 2MN NIDAS, MEETS INPT CRITERIA FOR TIA. NEEDED FURTHER STUDIES, MRI AND ECHO, AND EVAL BY PT/OT/ST MEDICARE FROM OBS TO INPT 08/13/24 @ 7305 ORDER MATCHES REG NO AUTH REQURIED PER MEDICARE RULES PLAN TO DC TO [facility] WHEN MEDICALLY STABLE.
--- NOTE | 2024-08-13 14:49 | NUR ---
PATIENT NEEDED ASSISTANCE TO THE BATHROOM, HAD A BOWL MOVEMENT. THEN ASSISTED BACK TO BED CLEANED ROOM UP A BIT. RE-ATTACHED TELE AND GOT A WARM BLANKET. CALL LIGHT WITH IN REACH, BED ALARM ON, NOTHING ELSE NEEDED AT THIS TIME.
[2024-08-13] MEDS ORDERED: levoFLOXacin 750 MG TAB PO SCH (16:00)
--- NOTE | 2024-08-13 17:08 | NUR ---
PATIENT WAS IN BED AT THIS TIME, NEEDED ASSISTANCE TO THE RESTROOM TO VOID. BANQUET FOOD SERVER CHANGED BREIF AND GOWN, AND CLEANED UP BED. ASSISTED BACK TO BED AND SAT UP FOR DINNER. CALL LIGHT WITH IN REACH, BED ALARM ON, NOTHING ELSE NEEDED AT THIS TIME.
--- NOTE | 2024-08-13 17:58 | NUR ---
medications reconciled
[2024-08-13 18:12] VITALS: BP 128/92
--- NOTE | 2024-08-13 18:17 | NUR ---
PATIENT WAS IN BED AT THIS TIME, PIZZA COOK ASSISTED TO THE RESTROOM AND BACK TO BED. PIZZA COOK CHARTED VITALS AND I&O'S, GOT FRESH ICE WATER, CALL LIGHT WITH IN REACH, BED ALARM ON AND NOTHING ELSE NEEDED AT THIS TIME.
--- NOTE | 2024-08-13 19:22 | NUR ---
RECEIVED REPORT. PT BEING ASSISTED TO BATHROOM BY YOUSIF.
[2024-08-13 20:24] VITALS: BP 130/76
--- NOTE | 2024-08-13 20:25 | NUR ---
VITALS AND ASSESSMENT. PT POINTS TO SPOT ON R ARM AROUND AC WHICH IS MILDLY BUMPY AND RED, C/W REPORT FROM PREVIOUS NURSE. WHEN ASKED IF IT IS PAINFUL WITH TOUCH, PT SHAKES HEAD. DOES NOT RECOIL OR VOCALIZE WHEN SPOT IS PRESSED. PT RESTING IN BED WATCHING TV, BED ALARM ACTIVE ADN CALL LIGHT IN REACH
--- NOTE | 2024-08-13 21:27 | NUR ---
RESPONDED TO BED ALARM. ASSISTED PT OOB AND TO THE BATHROOM. PT VOIDED TO TOILET INDEPENDENTLY. ASSISTED BACK TO BED, BED ALARM REACTIVATED
--- NOTE | 2024-08-13 23:32 | NUR ---
PT ALERT IN BED WATCHING TV. BED ALARM ACTIVE
--- NOTE | 2024-08-14 00:28 | NUR ---
PT ATTEMPING TO LEAVE BED WHEN ENTERED ROOM. ASSISTED TO BATHROOM AND REPLACED BRIEFS. PT BACK IN BED WITH BED ALARM ACTIVE
--- NOTE | 2024-08-14 01:48 | NUR ---
PT IN BED WITH EYES CLOSED, RISE AND FALL OF CHEST OBSERVED. BED ALARM ACTIVE
[2024-08-14 01:56] VITALS: BP 120/76
[2024-08-14 01:58] VITALS: BP 120/76
--- NOTE | 2024-08-14 01:58 | NUR ---
SENIOR JAVA WEB APPLICATION DEVELOPER OBTAINEED VITALS AND I&O. ICE WATER REFILLED. PT STATES NO NEEDS AT THIS TIME. CALL LIGHT WITHIN REACH AND BED ALARM ON.
--- NOTE | 2024-08-14 02:20 | NUR ---
RESPONDED TO BED ALARM. ASSISTED TO BATHROOM. NOTED SMALL BLEEDING ON L ELBOW AT SITE OF PREVIOUS SCAB, SEEMINGLY FALLEN OFF. CLEANED WITH ALCOHOL AND COVERED WITH CLEAN GAUZE. CHANGED SOILED BEDDING. PT NOW BACK IN BED, BED ALARM ACTIVE.
--- NOTE | 2024-08-14 03:43 | NUR ---
ROUNDED BEFORE BREAK. PT IN BED WITH EYES CLOSED, RISE AND FALL OF CHEST NOTED. BED ALARM ACTIVE
--- NOTE | 2024-08-14 05:14 | NUR ---
PT RESTING WITH EYES CLOSED, OBSERVED RISE AND FALL OF CHEST. BED ALARM ACTIVE
--- NOTE | 2024-08-14 05:35 | NUR ---
UNABLE TO ASSESS ORIENTATION. PT NON-VERBAL AT BASELINE, THOUGH FOLLOWS INSTRUCTIONS AND OFTEN ABLE TO MAKE NEEDS KNOWN WITH POINTING AND LIMITED VOCALIZATION/ HEAD NODDING. VITALS WNL OVERNIGHT, MONITORED ON TELEMONITOR 8. PT OCCASIONALLY ACTIVATING BED ALARM IN ATTEMPTS TO GO TO THE BATHROOM, DOES NOT USE CALL LIGHT. SBA OUT OF BED, VOIDING CLEAR YELLOW TO TOILET. L ELBOW WITH NEW SMALL BLEEDING AFTER PREVIOUS SCAB FELL OFF, CLEANED AND DRESSED WITH GAUZE. BED ALARM ACTIVE, CALL LIGHT IN REACH
[2024-08-14 05:36] LABS: BASOPHILS 0.6 % (0-2); EOSINOPHILS 3.5 % (0-6); HEMATOCRIT 34.8 % (35.0-50.0); LYMPHOCYTES 47.4 % (24-44); MCH 31.5 (27-36); MCHC 34.5 g/dl (30-36); MCV 91.4 fl (81-99); MONOCYTES 14.7 % (0-12); NEUTROPHILS 33.8 % (39-80); PLATELET COUNT 111 K/uL (140-440); RBC 3.81 M/ul (4.3-5.7); RDW 13.9 (10.5-15.0)
[2024-08-14 05:50] LABS: ANION GAP 12.2 (7-21); BUN/CREATININE RATIO 11.62 (6.0-28.6); CALCIUM 8.8 mg/dL (8.5-10.1); CREATININE, SERUM 0.86 mg/dL (0.70-1.30); POTASSIUM 4.2 mmol/L (3.5-5.1)
[2024-08-14 06:19] VITALS: BP 110/67
[2024-08-14 06:25] VITALS: BP 110/67
--- NOTE | 2024-08-14 06:32 | NUR ---
VITALS, ASSISTED TO BATHROOM, CHANGED CHUX PAD AND BRIEF. PT RESTING IN BED WATCHING TV, BED ALARM ON
--- NOTE | 2024-08-14 07:42 | NUR ---
RECIEVED BEDSIDE REPORT FROM PENNY OLGUIN. PT IS RESTING COMFORTABLY. HE WAS WATCHING CARTOONS MUCH OF THE NIGHT. HE CAN SOMETIMES MAKE HIS WANTS AND NEEDS KNOWN, BUT NOT ALWAYS. NO NEEDS AT THIS TIME.
--- NOTE | 2024-08-14 07:43 | NUR ---
PT RESTING IN BED. BS CHECK COMPLETE. PT TOLERATED WELL. PT ASSISTED UP TO CHAIR SBA. NEW BRIEF PLACED D/T BEING SOILED W/ URINE. PT PROVIDED WARM BLANKET AND ICE WATER. CHAIR ALARM ON. CALL LIGHT IN REACH.
--- NOTE | 2024-08-14 08:47 | NUR ---
PT RESTING IN CHAIR WATCHING TV. COFFEE PROVIDED TO PT. MEAL TRAY CLEARED. CHAIR ALARM ON. CALL LIGHT IN REACH.
--- NOTE | 2024-08-14 09:28 | NUR ---
PATIENT WAS IN THE RESTROOM AT THIS TIME, TREATING ENGINEER HELPER HEARD THE CHAIR ALARM AND WENT TO ASSIST. TREATING ENGINEER HELPER CHANGED GOWN AND BREIF, PATIENT HAD A LARGE BM. TREATING ENGINEER HELPER ASSISTED BACK TO CHAIR, CHAIR ALARM ON, WARM BLANKET, CALL LIGHT WITH IN REACH NOTHING ELSE NEEDED AT THIS TIME.
[2024-08-14 09:34] VITALS: BP 118/75
--- NOTE | 2024-08-14 09:39 | NUR ---
PT RESTING IN THE CHAIR. VITALS AND I'S AND O'S COMPLETE. PT ASSISTED W USE OF URINAL. PT VOIDED 50ML OF CLEAR YELLOW URINE. PT WATCHING TV. ICE WATER PROVIDED. CHAIR ALARM ON. CALL LIGHT IN REACH
--- NOTE | 2024-08-14 10:38 | NUR ---
pt resting in chair. RR even and unlabored. chair alarm on. call light in reach
--- NOTE | 2024-08-14 10:43 | NUR ---
PATIENT WAS IN HIS CHAIR AT THIS TIME, ALLERGIST/PEDIATRIC PULMONOLOGIST ASSISTED TO THE RESTROOM AND BACK TO HIS CHAIR. CHAIR ALARM IS ON, CALL LIGHT WITH IN REACH AND NOTHING ELSE NEEDED AT THIS TIME.
[2024-08-14] MEDS ORDERED: LEVOFLOXACIN750 MG PO (10:55)
[2024-08-14] MEDS ORDERED: ASPIRIN81 MG PO (11:04)
--- NOTE | 2024-08-14 11:09 | NUR ---
talked with shelley. patient to be discharged. will email orders once completed. no futher cm needs.
--- NOTE | 2024-08-14 11:34 | NUR ---
PT RESTING IN CHAIR. CBG COMPLETE. CBG 135. PT TOLERATED WELL. PT WATCHING TV. CHAIR ALARM ON. CALL LIGHT IN REACH
--- NOTE | 2024-08-14 11:37 | NUR ---
discharge sent to [facility]. will be here in the next 30 to get patient. no futher cm needs.
--- NOTE | 2024-08-14 11:41 | NUR ---
PT NOT AVAILABLE FOR VISIT. PROVIDED PRAYER.
[2024-08-14 11:43] VITALS: BP 119/77
--- NOTE | 2024-08-14 11:50 | NUR ---
VITALS COMPLETE. PT DRESSED FOR DC. PT SET UP TO EAT LUNCH. PT EATING LUNCH IN CHAIR. CHAIR ALARM ON. CALL LIGHT IN REACH
--- NOTE | 2024-08-14 12:17 | NUR ---
INSULIN NOT GIVEN, BLOOD SUGAR IN RANGE. STAFF FROM [facility] CAME TO PICK HIM UP. ALL BELONGINGS RETURNED. PT WAS EXCITED TO GO HOME.
== END 2024-08-14 12:15 | disposition home or self-care (01) | DRG 69 ==
LOC: ED 18:09 → MS 18:11
PROVIDERS: Emergency Medicine; ADMIT Family Medicine; ATTEND Family Medicine
DX: G45.9 Transient cerebral ischemic attack, unspecified (principal); J96.01 Acute respiratory failure with hypoxia; J18.9 Pneumonia, unspecified organism; E87.1 Hypo-osmolality and hyponatremia; R73.03 Prediabetes; G80.9 Cerebral palsy, unspecified; E03.9 Hypothyroidism, unspecified; K44.9 Diaphragmatic hernia without obstruction or gangrene; I10 Essential (primary) hypertension; F41.9 Anxiety disorder, unspecified; E78.00 Pure hypercholesterolemia, unspecified; N40.0 Benign prostatic hyperplasia without lower urinary tract symptoms; F20.9 Schizophrenia, unspecified; F71 Moderate intellectual disabilities; Z79.890 Hormone replacement therapy
CPT/HCPCS: 36415; 70450; 70496; 70498; 70551; 71250; 80048; 80053; 80061; 81001; 83036; 83605; 83735; 84100; 85025; 85610; 85730; 87040; 92610; 93005; 93010; 93306; 96367; 97161; 97165; 97530; 97535; 99285-25; A9270-GY; G0378; J0456; J0696; J7030; J7060; Q9967

== ENCOUNTER 2024-11-16 08:42 | Emergency (ER) | payer MEDICARE, OTHER ==
[~2024-11-16] VITALS: Ht 182.9 cm; Wt 93.1 kg
[~2024-11-16 08:42] MED LIST changes: +LURASIDONE HCL40 MG
[2024-11-16] MEDS ORDERED: SODIUM CHLORIDE 0.9% 1,000 ML IV ONE (09:00)
[2024-11-16 09:24] LABS: BASOPHILS 0.4 % (0.2-1.2); EOSINOPHILS 0.7 % (0.8-7.0); HEMATOCRIT 36.7 % (40.1-51.0); HEMOGLOBIN 11.9 g/dL (13.7-17.5); LYMPHOCYTES 15.6 % (21.8-53.1); MCH 30.7 PG (25.7-32.2); MCHC 32.4 g/dL (32.3-36.5); MCV 94.8 fL (79.0-92.2); MONOCYTES 17.8 % (5.3-12.2); PLATELET COUNT 151 K/uL (163-337); RBC 3.87 M/uL (4.63-6.08)
[2024-11-16 09:40] LABS: ALBUMIN 2.7 g/dL (3.4-5.0); ALBUMIN/GLOBULIN RATIO 0.63 (1.1-2.4); ANION GAP 15.2 (7-21); BILIRUBIN, TOTAL 0.5 mg/dL (0.2-1.0); CALCIUM 8.9 mg/dL (8.5-10.1); CREATININE, SERUM 1.23 mg/dL (0.70-1.30); POTASSIUM 4.2 mmol/L (3.5-5.1)
[2024-11-16 10:57] LABS: BILIRUBIN, URINE NEGATIVE (negative); BLOOD/HGB, URINE MODERATE (Negative); KETONE, URINE TRACE (Negative); LEUK ESTERASE, URINE NEGATIVE (negative); NITRITE, URINE NEGATIVE (negative); PH, URINE 6.5 (5-7)
[2024-11-16 11:10] LABS: WHITE BLOOD CELLS, URINE 0-1 /HPF (0-5)
[2024-11-16 11:11] LABS: BACTERIA, URINE RARE /hpf (negative); CASTS, URINE NONE SEEN \\lpf; COLLECTION TYPE, URINE CLEAN CATCH; CRYSTALS, URINE NONE SEEN (0-1+); EPITHELIAL CELLS, URINE SQUAMOUS 2+ /lpf (0-1+); REFLEX CULTURE, URINE No (No)
[2024-11-16] MEDS ORDERED: ZITHROMAX250 MG PO (13:02)
[2024-11-16 13:23] VITALS: BP 137/68
--- NOTE | 2024-11-16 19:36 | EKG ---
[facility] [address] [facility] [place] [address] Signed Normal sinus rhythm Normal ECG When compared with ECG of 12-AUG-2024 18:57, No significant change was found Confirmed by Long Finney DO ([id number]) on 11/16/2024 7:36:14 PM Electronically Signed By: LONG FINNEY DO 11/16/24 193 PATIENT NAME: GAURANG MILLANShantal Corley Electrocardiogram DATE OF : 59 PHYSICIAN: LONG FINNEY DO REPORT #: [id number] REPORT IS CONFIDENTIAL AND NOT TO BE RELEASED WITHOUT AUTHORIZATION
[2024-11-17] MEDS ORDERED: AZITHROMYCIN250 MG PO (20:08)
[2024-11-17] MEDS ORDERED: MACROBID 100 M100 MG PO (22:46)
== END 2024-11-16 13:24 | disposition home or self-care (01) ==
LOC: ED 08:42
PROVIDERS: Emergency Medicine
DX: R53.1 Weakness (principal); J18.9 Pneumonia, unspecified organism; G80.9 Cerebral palsy, unspecified
CPT/HCPCS: 36415; 70450; 71045; 80053; 81001; 85025; 93005; 93010; 99285-25; J7030

== ENCOUNTER 2024-11-17 20:04 | Emergency (ER) | payer MEDICARE, OTHER ==
[~2024-11-17] VITALS: Ht 182.9 cm; Wt 89.4 kg
[~2024-11-17 20:04] MED LIST changes: +ZITHROMAX250 MG PO
[2024-11-17] MEDS ORDERED: AZITHROMYCIN250 MG PO (20:08)
--- OUTSIDE RECORDS SUMMARY | 2024-11-17 20:11 | XMS ---
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 Events No recent Security Events currently on file CRITERIA MET - [facility] - 2 Visits in 30 Days CARE PROVIDERS -, Jose D Dental+ Dentist: Orthodontist Assistant Current [place] PHONE: [phone] -[place]amilka- Dentist: Orthodontist Assistant Current [facility] PHONE: [phone] [facility]/[place]: [facility] Current FAMILY PHONE: [phone] FRITZ LLOYD [facility] Current PHONE: Unknown MABEL Snowden [facility] Current PHONE: [phone] Care Guidelines exist for the following facilities: [facility] ( 10/26/2019 ) [facility] VISIT COUNT (12 MO.) 6 DEMAR Guerrero TOTAL 6 NOTE: Visits indicate total known visits. 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 marine oil terminal superintendent (current) 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 therapy - Other nonmedicinal substance allergy status - Viral infection, unspecified - Weakness 04/19/2024 17:54 [facility] [place] TYPE: Emergency COMPLAINT: - COLD SYMPTOMS DIAGNOSES: - Bipolar disorder, unspecified - Essential (primary) hypertension - Hormone replacement therapy - Hypothyroidism, unspecified - Other longterm (current) drug therapy - Pneumonia, unspecified organism - Weakness INPATIENT VISIT TRACKING (12 MO.) 08/13/2024 13:45 [facility] [place] TYPE: Medical Surgical COMPLAINT: - WEAKNESS,TIA DIAGNOSES: - Acute respiratory failure with hypoxia - Anxiety disorder, unspecified - Benign prostatic hyperplasia without lower urinary tract symptoms - Cerebral palsy, unspecified - Diaphragmatic hernia without obstruction or gangrene - Essential (primary) hypertension - Hormone replacement therapy - Hypo-osmolality and hyponatremia - Hypothyroidism, unspecified - Moderate intellectual disabilities - Pneumonia, unspecified organism - Prediabetes - Pure hypercholesterolemia, unspecified - Schizophrenia, unspecified - Transient cerebral ischemic attack, unspecified 07/18/2024 19:45 [facility] COMPLAINT: - AHRF/PNA [...] Hypothyroidism, unspecified - Hypothyroidism, unspecified - Other longterm (current) drug therapy - Other longterm (current) drug therapy - Other nonmedicinal substance allergy status - Other nonmedicinal substance allergy status - Pneumonia, unspecified organism - Pure hypercholesterolemia, unspecified - Pure hypercholesterolemia, unspecified [email or web address]
[2024-11-17] MEDS ORDERED: SODIUM CHLORIDE 0.9% 1,000 ML IV ONE (20:30)
[2024-11-17] MEDS ORDERED: ACETAMINOPHEN 500 MG TAB PO ONE (20:30)
[2024-11-17 20:41] LABS: BASOPHILS 0.3 % (0.2-1.2); EOSINOPHILS 1.0 % (0.8-7.0); LYMPHOCYTES 18.5 % (21.8-53.1); MCH 30.4 PG (25.7-32.2); MCHC 32.8 g/dL (32.3-36.5); MCV 92.7 fL (79.0-92.2); MONOCYTES 13.9 % (5.3-12.2); NEUTROPHILS 65.9 % (34.0-67.9); RBC 3.72 M/uL (4.63-6.08)
[2024-11-17 20:48] LABS: INR 0.98 (0.80-1.30); PROTIME 12.6 Sec (11.2-14.2)
[2024-11-17 20:50] LABS: LACTIC ACID, BLOOD 1.3 mmol/L (0.4-2.0)
[2024-11-17 20:57] LABS: ALT (SGPT) 39.0 U/L (14-59); AST (SGOT) 52.0 U/L (15-37); GLOMERULAR FILTRATION RATE,EST 66.0 mL/min (>60); PROTEIN, TOTAL 7.0 g/dL (6.4-8.2); UREA NITROGEN 13.0 mg/dL (7-18)
[2024-11-17 21:54] LABS: BLOOD/HGB, URINE MODERATE (Negative); KETONE, URINE TRACE (Negative); LEUK ESTERASE, URINE NEGATIVE (negative); NITRITE, URINE NEGATIVE (negative)
[2024-11-17 21:59] LABS: EPITHELIAL CELLS, URINE SQUAMOUS 1+ /lpf (0-1+)
[2024-11-17 22:00] LABS: BACTERIA, URINE RARE /hpf (negative); CASTS, URINE NONE SEEN \\lpf; CRYSTALS, URINE NONE SEEN (0-1+); REFLEX CULTURE, URINE No (No)
[2024-11-17] MEDS ORDERED: MACROBID 100 M100 MG PO (22:46)
[2024-11-17] MEDS ORDERED: NITROFURANTOIN MONOHYD MACROCR 100 MG HOME.PACK PO ONE (23:00)
[2024-11-17] MEDS ORDERED: ONDANSETRON 4 MG HOME.PACK SL ONE (23:00)
[2024-11-17 23:12] VITALS: BP 114/82
== END 2024-11-17 23:13 | disposition home or self-care (01) ==
LOC: ED 20:04
PROVIDERS: Family Medicine
DX: J18.9 Pneumonia, unspecified organism (principal); N39.0 Urinary tract infection, site not specified; I10 Essential (primary) hypertension; Z79.899 Other long term (current) drug therapy; Z79.2 Long term (current) use of antibiotics; Z91.09 Other allergy status, other than to drugs and biological substances
CPT/HCPCS: 36415; 70450; 80053; 81001; 83605; 85025; 85610; 96374; 99284-25; A9270; J0696; J7030

== ENCOUNTER 2025-03-03 08:55 | Day surgery (SDC) | payer MEDICARE, OTHER ==
[~2025-03-03] VITALS: Ht 182.9 cm; Wt 85.0 kg
[~2025-03-03 08:55] MED LIST changes: -ACETAMINOPHEN325 M1 PO; +AZITHROMYCIN250 MG PO; +IBLOOD GLUCOSE TEST STRIP 1 EA TEST VI PRN; +LACTATED RINGER'S 1,000 ML IV SCH; +LEVOTHYROXINE75 MCG PO; +LIDOCAINE HCL 1% 5 ML SDV INJ ONE; +MACROBID 100 M100 MG PO; +TYLENOL EXTRA500 MG PO
[2025-03-03 09:44] VITALS: BP 140/80
[2025-03-03] MEDS ORDERED: LIDOCAINE HCL 2% 5 ML SDV ONE (11:20)
[2025-03-03] MEDS ORDERED: SUCCINYLCHOLINE IN 0.9% NACL 200 MG/10 ML SYRINGE ONE (11:20)
[2025-03-03] MEDS ORDERED: ROCURONIUM BROMIDE 50 MG/5 ML SYR ONE (11:20)
[2025-03-03] MEDS ORDERED: fentaNYL citrate 100 MCG/2 ML VIAL ONE (11:21)
[2025-03-03] MEDS ORDERED: GLYCOPYRROLATE 1 MG/5 ML MDV ONE (11:29)
[2025-03-03] MEDS ORDERED: CEFAZOLIN SODIUM 1 GM in SODIUM CHLORIDE 0.9% 100 ML IV ONE (11:45)
[2025-03-03] MEDS ORDERED: KETOROLAC TROMETHAMINE 30 MG/ML VIAL ONE (11:57)
[2025-03-03] MEDS ORDERED: DEXAMETHASONE SOD PHOS 4 MG/ML VIAL ONE (11:57)
[2025-03-03] MEDS ORDERED: PHENYLEPHRINE HCL IN 0.9% NACL 1 MG/10 ML SYR ONE (12:12)
[2025-03-03] MEDS ORDERED: BACITRACIN 0.9 GM 1 PKT PKT ONE (12:24)
--- NOTE | 2025-03-03 13:01 | NUR ---
03/03/25 1301 Emely Rabago 1235- PT ARRIVES FROM OR. ORAL AIRWAY IN PLACE ON 6L OF O2. BREATHING IS EVEN AND UNLABORED. MONITORS PUT INPLACE. LR INFUSING. VITAL SIGNS OBTAINED. PT IS NONREACTIVE TO VERBAL STIMULI. SURGICAL SITE IS CDI.
--- NOTE | 2025-03-03 13:10 | NUR ---
PT ARRIVES TO DS FROM PACU VIA STRETCHER. PT IS ALERT AND RETURNED TO BASELINE BEHAVIOR. PT ON 2L OF O2 VIA NC D/T DSATS TO 88-89% IN PACU. DRESSING C/D/I. REPORT RECEIVED FROM ALEXI FRANCIS, CAREGIVER AT BEDSIDE. CAREGIVER REPORTS NO NEEDS OR QUESTIONS AT THIS TIME. CALL LIGHT WITHIN REACH. PUDDING, APPLE JUICE, CRACKERS PROVIDED.
[2025-03-03 13:11] VITALS: BP 150/81
--- NOTE | 2025-03-03 13:46 | NUR ---
PAIN ASSESSMENT PERFORMED. PT NONVERBAL, PER FLACC SCALE PAIN REMAINS 0. PT CONSUMED ORALS WITHOUT DIFFICULTY SWALLOWING. CAREGIVER REMAINS AT BEDSIDE. CALL LIGHT WITHIN REACH. CAREGIVER STATES NO FURTHER NEEDS OR QUESTIONS AT THIS TIME.
--- NOTE | 2025-03-03 13:55 | NUR ---
CAREGIVER INSTRUCTED OK FOR PT TO GET DRESSED AT THIS TIME. NO FURTHER NEEDS OR QUESTIONS PER CAREGIVER. CALL LIGHT WITHIN REACH.
[2025-03-03 14:07] VITALS: BP 151/96
--- NOTE | 2025-03-03 14:08 | NUR ---
DC EDUCATION PROVIDED TO CAREGIVER AND PRESCRIPTION IN FOLDER. PT CAREGIVER STATES VERBAL UNDERSTANDING TO DC EDUCATION AND NO FURTHER NEEDS OR QUESTIONS AT THIS TIME. PT OFF OF UNIT VIA WC TO PASSENGER SIDE OF CAREGIVER VEHICLE. ALL BELONGINGS IN PT POSSESSION AT THIS TIME.
[2025-03-03] MEDS ORDERED: SEVOFLURANE 250 ML BTL INH ONE (15:33)
--- NOTE | 2025-03-05 16:05 | PATH ---
[facility] [address], [place] [address] Signed SPECIMEN(S): A LEFT FOREARM SPECIMEN SOURCE: A. LEFT FOREARM CLINICAL HISTORY: Forearm skin cancer. 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 - Depth of tumor invasion: 1.3 mm. - Peripheral surgical margins: Free of tumor by at least 3 mm. - Deep surgical margin: Free of tumor by at least 3 mm. JVR MICROSCOPIC EXAMINATION: Histologic sections of all submitted blocks are examined by light microscopy. These findings, together with the gross examination, support the pathologic diagnosis. GROSS DESCRIPTION: The specimen, labeled and designated "Sandro Millan " and designated on the requisition "squamous cell CA left forearm, black stitch lateral, green stitch medial, white stitch inferior," is received in formalin and consists of a 5.1 x 2.4 x 0.7 cm oriented skin ellipse. A black suture identifies the lateral margin and is redesignated 3 o'clock. The white suture identifies the inferior margin and is redesignated 6 o'clock. The green suture identifies the medial margin and is redesignated 9 o'clock The skin surface is pale pink and wrinkled with a 3.2 x 0.7 x 0.1 cm pale pink to red granular and slightly nodular lesion that is 0.7 cm from the 12 o'clock margin, 1.2 cm from the 3 o'clock margin, 1.0 cm from the 6 o'clock margin, and 0.8 cm from the 9 o'clock margin. The specimen is inked as follows: 9-12-3 o'clock - black, 3-6 o'clock -blue, 6-9 o'clock orange. The specimen is serially sectioned from 9-3 o'clock and entirely submitted in five cassettes. Cassette Summary: (A1) tips (A2-A5) body of skin ellipse is submitted from 9-3 o'clock PATIENT NAME: JAZZY MILLAN PATHOLOGY DATE OF : 59 REPORT #: [id number] PHYSICIAN: KAELA JOSEPH PCP: FRITZ LLOYD MD REPORT IS CONFIDENTIAL AND NOT TO BE RELEASED WITHOUT AUTHORIZATION [facility] [address] [place] [id number] Signed FB (under the direct supervision of a pathologist) The Gross Description was prepared using a voice recognition system. The report was reviewed for accuracy; however, sound-alike word errors, addition and/or deletions may occur. If there is any question about this report, please contact Client Services. ADDITIONAL NOTES: Immunohistochemical and/or in situ hybridization studies if performed in this case included appropriate positive controls that reacted as expected. This test was developed and its performance characteristics determined by [facility]. It has not been cleared or approved by the U.S. Food and Drug Administration. The FDA has determined that such clearance or approval is not necessary. This test is used for clinical purposes. It should not be regarded as investigational or for research. [facility] is certified under the Clinical Laboratory Improvement Amendments of 1988 (CLIA) as qualified to perform high complexity clinical laboratory testing. PERFORMING LABORATORY: Technical component was performed by [facility], [address] [place] [id number] (CLIA# [id number]). Professional interpretation was performed by [facility] [place] [facility] - [address] [place] [address] (CLIA#: [id number]). Diagnostician: Jalen Zurita MD Pathologist Electronically Signed 03/05/2025 Copies: ~ PATIENT NAME: JAZZY MILLAN PATHOLOGY DATE OF : 59 REPORT #: [id number] PHYSICIAN: KAELA JOSEPH PCP: FRITZ LLOYD MD REPORT IS CONFIDENTIAL AND NOT TO BE RELEASED WITHOUT AUTHORIZATION
== END 2025-03-03 14:10 | disposition home or self-care (01) ==
LOC: DS 08:55
PROVIDERS: ATTEND Surgery
PROC: 0HBCXZZ Excision of Left Upper Arm Skin, External Approach (ICD-10-PCS; principal; 2025-03-03 10:00)
DX: C44.629 Squamous cell carcinoma of skin of left upper limb, including shoulder (principal); I10 Essential (primary) hypertension; E03.9 Hypothyroidism, unspecified; E78.00 Pure hypercholesterolemia, unspecified; N40.0 Benign prostatic hyperplasia without lower urinary tract symptoms; G80.9 Cerebral palsy, unspecified; F20.9 Schizophrenia, unspecified; F31.81 Bipolar II disorder; Z79.899 Other long term (current) drug therapy; Z88.8 Allergy status to other drugs, medicaments and biological substances
CPT/HCPCS: 00400; J0165; J0330; J0690; J1100; J1885; J2003; J2405; J2704; J3010; J3490; J7121

== ENCOUNTER 2025-03-06 01:06 | Inpatient (IN) | payer MEDICARE, OTHER ==
[~2025-03-06] VITALS: Ht 182.9 cm; Wt 89.6 kg
[2025-03-06] VITALS (10 sets, daily range): BP systolic 125–154; BP diastolic 69–92
--- OUTSIDE RECORDS SUMMARY | ~2025-03-06 | XMS | Continuity of Care Document ---
Demographics + + + | Address | [address] | | | [place] [address] | + + + | Preferred Language | Unknown | + + + | Marital Status | Never | + + + | Buddhism Affiliation | Unknown | + + + | Race | White | + + + | Ethnic Group | Not or | + + + Author + + + | Author | [facility] | + + + | Organization | [facility] | + + + | Address | [address] | | | [place] [address] | + + + | Phone | | + + + Care Team Providers + + + + | Care Candy Vendor Name | Role | Phone | + [...] | (no date) | Lurasidone HCl | [facility] | | | | [facility] | + + + + | (no date) | LURASIDONE HCL | [facility] | | | | [facility] | + + + + | (no date) | DIVALPROEX SODIUM | [facility] | | | | [facility] | + + + + | (no date) | DIVALPROEX SODIUM | [facility] | | | | [facility] | + + + + | (no date) | MIRABEGRON | [facility] | | | | [facility] | + + + + | (no date) | NEOMYCN/BACI ZN/PMYX | [facility] | | | BS/PRAMOX | [facility] | + + + + | (no date) | SIMVASTATIN | [facility] | | | | [facility] | + + + + | (no date) | MAGNESIUM HYDROXIDE | [facility] | | | | [facility] | + + + + | (no date) | AZITHROMYCIN | [facility] | | | | [facility] | + + + + | (no date) | FINASTERIDE | [facility] | | | | [facility] | + + + + | (no date) | GUAIFENESIN | [facility] | | | | [facility] | + + + + | (no date) | ZIPRASIDONE HCL | [facility] | | | | [facility] | + + + + | (no date) | ACETAMINOPHEN | [facility] | | | | [facility] | + + + + | (no date) | CARBAMIDE PEROXIDE | [facility] | | | | [facility] | + + + + | (no date) | Sodium Chloride | [facility] | | | | [facility] | + + + + | (no date) | TAMSULOSIN HCL | [facility] | | | | [facility] | + + + + | (no date) | TAMSULOSIN HCL | [facility] | | | | [facility] | + + + + | (no date) | BUSPIRONE HCL | [facility] | | | | [facility] | + + + + | (no date) | POLYETHYLENE GLYCOL 3350 | [facility] | | | | [facility] | + + + + | (no date) | LEVOTHYROXINE SODIUM | [facility] | | | | [facility] | + + + + | (no date) | | [facility] | | | Guaifenesin/Dextromethorpha | [facility] | | | n | | + + + + Problems + + + + | date | description | facility | + + + + | 2024-12-22 00:00 | Ataxia | [facility] | | | | [facility] | + + + + Procedures No information. Results/Labs +--------+--------+ +---------+--------+---------+ | test | date | facility | value | unit | notes | +--------+--------+ +---------+--------+---------+ + + | Result panel 1 | + + + + + +------+ + + | Glucose | 2024-12-22 | | 96 | (missing) | (missing) | | [facility] | 14:52:07 | [facility] | | | | | [...] 100 | mg/dL | (missing) | | [facility] | 15:00:07 | [facility] | | | [...] 0.95 | mg/dL | (missing) | | [facility] | 15:00:07 | [facility] | | | [...] 25 | (missing) | (missing) | | SerPl-sCnc [...] 7.4 | (missing) | (missing) | | SerPl-mCnc [...] 13 | (missing) | (missing) | | SerPl-cCnc [...] 71 | (missing) | (missing) | | [facility] | 15:00:07 | [facility] | | | [...] 24 | + + + + + +-------+ [...] 25 | + + + + + +-------+ + + | Basophils | 2024-12-22 | | 0.7 | (missing) | (missing) | | NFr Bld Auto | 15::07 | [facility] | | | [...] 12.6 | (missing) | (missing) | | [facility] | 15:28:07 | [facility] | | | | | [facility] | | [facility] | | | | + + + +--------+ + + + + | Result panel 28 | + + + + + +--------+ + + | Hct VFr.DF | 2024-12-22 | | 37.6 | (missing) | (missing) | | Bld Auto | 15::07 | [facility] | | | [...] (missing) | (missing) | | Auto | :: | [facility] | | | | | [...] (missing) | (missing) | | Auto-EntMCnc | : | [facility] | | | | | [...] 33 | + + + + + +--------+ [...] + + + +---------+ + + | Ketones Ur | 2024-12-22 | | TRACE | (missing) [...] + + + +---------+ + + | Sp Gr Ur | 2024-12-22 | | 1.020 | (missing) [...] NEGATIVE | (missing) | (missing) | | Strip-m[facility] | 16:58:07 | [facility] | | | [...] [facility] | | | | | Strip-m[facility] | | [facility] | | | | [...] SEEN | (missing) | (missing) | | UrnS Micro | 16:58:07 | [facility] | | [...] + + + + + + + Social History +--------+ + + [...] 200.400 | lb | + + + +---------+"
--- OUTSIDE RECORDS SUMMARY | ~2025-03-06 | XMS | Continuity of Care Document ---
Demographics + + + | Address | [address] | | | [place] [address] | + + + | Preferred Language | Unknown | + + + | Marital Status | Never | + + + | Episcopalian Affiliation | Unknown | + + + | Race | White | + + + | Ethnic Group | Not or | + + + Author + + + | Author | [facility] | + + + | Organization | [facility] | + + + | Address | [address] | | | [place] [address] | + + + | Phone | | + + + Care Team Providers + + + + | Care Inspector Subassembly Name | Role | Phone | + [...] | (no date) | Lurasidone HCl | [facility] | | | | [facility] | + + + + | (no date) | LURASIDONE HCL | [facility] | | | | [facility] | + + + + | (no date) | DIVALPROEX SODIUM | [facility] | | | | [facility] | + + + + | (no date) | DIVALPROEX SODIUM | [facility] | | | | [facility] | + + + + | (no date) | MIRABEGRON | [facility] | | | | [facility] | + + + + | (no date) | NEOMYCN/BACI ZN/PMYX | [facility] | | | BS/PRAMOX | [facility] | + + + + | (no date) | SIMVASTATIN | [facility] | | | | [facility] | + + + + | (no date) | MAGNESIUM HYDROXIDE | [facility] | | | | [facility] | + + + + | (no date) | AZITHROMYCIN | [facility] | | | | [facility] | + + + + | (no date) | FINASTERIDE | [facility] | | | | [facility] | + + + + | (no date) | GUAIFENESIN | [facility] | | | | [facility] | + + + + | (no date) | ZIPRASIDONE HCL | [facility] | | | | [facility] | + + + + | (no date) | ACETAMINOPHEN | [facility] | | | | [facility] | + + + + | (no date) | CARBAMIDE PEROXIDE | [facility] | | | | [facility] | + + + + | (no date) | Sodium Chloride | [facility] | | | | [facility] | + + + + | (no date) | TAMSULOSIN HCL | [facility] | | | | [facility] | + + + + | (no date) | TAMSULOSIN HCL | [facility] | | | | [facility] | + + + + | (no date) | BUSPIRONE HCL | [facility] | | | | [facility] | + + + + | (no date) | POLYETHYLENE GLYCOL 3350 | [facility] | | | | [facility] | + + + + | (no date) | LEVOTHYROXINE SODIUM | [facility] | | | | [facility] | + + + + | (no date) | | [facility] | | | Guaifenesin/Dextromethorpha | [facility] | | | n | | + [...] 96 | (missing) | (missing) | | [facility] | 14:52:07 | [facility] | | | [...] 100 | mg/dL | (missing) | | [facility] | 15:00:07 | [facility] | | [...] 71 | (missing) | (missing) | | [facility] | 15:00:07 | [facility] | | [...]
[~2025-03-06 01:06] MED LIST changes: -IBLOOD GLUCOSE TEST STRIP 1 EA TEST VI PRN; -LACTATED RINGER'S 1,000 ML IV SCH; -LIDOCAINE HCL 1% 5 ML SDV INJ ONE
[2025-03-06] MEDS ORDERED: DAPTOmycin 500 MG/10 ML VIAL IV ONE (01:15)
[2025-03-06] MEDS ORDERED: SODIUM CHLORIDE 0.9% 1,000 ML IV ONE (01:15)
[2025-03-06] MEDS ORDERED: ACETAMINOPHEN 500 MG TAB PO ONE (01:15)
[2025-03-06 01:46] LABS: BASOPHILS 0.2 % (0.2-1.2); EOSINOPHILS 4.2 % (0.8-7.0); LYMPHOCYTES 16.7 % (21.8-53.1); MCH 31.8 PG (25.7-32.2); MCHC 33.8 g/dL (32.3-36.5); MCV 94.0 fL (79.0-92.2); MONOCYTES 8.4 % (5.3-12.2); NEUTROPHILS 70.2 % (34.0-67.9); RBC 3.49 M/uL (4.63-6.08)
[2025-03-06 02:01] LABS: ALT (SGPT) 23.0 U/L (14-59); AST (SGOT) 20.0 U/L (15-37); GLOMERULAR FILTRATION RATE,EST 85.0 mL/min (>60); PROTEIN, TOTAL 6.3 g/dL (6.4-8.2); UREA NITROGEN 10.0 mg/dL (7-18)
[2025-03-06 02:23] LABS: LACTIC ACID, BLOOD 3.3 mmol/L (0.4-2.0)
[2025-03-06 02:45] LABS: INFLUENZA B NAA NEGATIVE (NEGATIVE); RESPIRATORY SYNCYTIAL VIR NAA NEGATIVE (NEGATIVE)
[2025-03-06] MEDS ORDERED: FUROSEMIDE 40 MG/4 ML VIAL IV ONE (02:45)
[2025-03-06 02:56] LABS: BLOOD/HGB, URINE SMALL (Negative); KETONE, URINE NEGATIVE (Negative); LEUK ESTERASE, URINE NEGATIVE (negative); NITRITE, URINE NEGATIVE (negative)
[2025-03-06 03:14] LABS: BACTERIA, URINE NONE SEEN /hpf (negative); CASTS, URINE NONE SEEN \\lpf; CRYSTALS, URINE NONE SEEN (0-1+); EPITHELIAL CELLS, URINE SQUAMOUS 1+ /lpf (0-1+); REFLEX CULTURE, URINE No (No)
[2025-03-06] MEDS ORDERED: HUMAN PROTHROMBIN COMPLX(PCC) 500 UNIT/20 ML VIAL IV ONE (03:15)
[2025-03-06] MEDS ORDERED: SODIUM CHLORIDE 0.9% 50 ML IV PRN (03:15)
[2025-03-06] MEDS ORDERED: HYDROmorphone HCL 1 MG/ML SYR IV PRN (04:15)
[2025-03-06] MEDS ORDERED: ACETAMINOPHEN 325 MG TAB PO PRN (04:15)
--- NOTE | 2025-03-06 05:01 | NUR ---
0439 admitted to room 121 from ER via stretcher. Pt non verbal from [facility]
[2025-03-06 05:22] LABS: BASOPHILS 0.4 % (0.2-1.2); EOSINOPHILS 3.4 % (0.8-7.0); LYMPHOCYTES 18.3 % (21.8-53.1); MCH 31.2 PG (25.7-32.2); MCHC 32.8 g/dL (32.3-36.5); MCV 95.1 fL (79.0-92.2); MONOCYTES 8.7 % (5.3-12.2); NEUTROPHILS 68.9 % (34.0-67.9); RBC 3.88 M/uL (4.63-6.08)
[2025-03-06 05:36] LABS: ALT (SGPT) 25.0 U/L (14-59); AST (SGOT) 22.0 U/L (15-37); GLOMERULAR FILTRATION RATE,EST 88.0 mL/min (>60); PROTEIN, TOTAL 6.6 g/dL (6.4-8.2); UREA NITROGEN 9.0 mg/dL (7-18)
--- NOTE | 2025-03-06 05:53 | NUR ---
PT RESTING, EYES CLOSED, JIM WRAP OVER L FOREARM RED AREA ELEVATED WITH PILLOWS, EDEMATOUS FINGERS BILAT. NO OTHER EDEMA NOTED. SL RAC COVERED WITH JIM WRAP TO PREVENT ACCIDENTAL REMOVAL. WAS COOPERATIVE. ALL CARES EXPLAINED TO PT. WAS COOPERATIVE. ATTENDS CHANGED ON ADMIT HE WAS INCONTINENT. MALE PUREWICK IN PLACE. NECTAR THICK LIQUIDS AT BEDSIDE, BED ALARM IN PLACE.
--- NOTE | 2025-03-06 06:08 | NUR ---
AWAKE, QUIET, ALL CARES EXPLAINED, COOPERATIVE. L FOREARM REDNESS/INCISION AREA COVERED WITH JIM WRAP. EDEMA TO HAND, ELEVATED WITH PILLOWS. REPOSITIONS SELF IN BED. TOOK PO MED WITH SIPS OF WATER, PASSED BEDSEIDE SWALLOW EVAL, NECTAR THICK LIQUIDS PER HALFWAY ORDERS, NO COUGH AFTERWARDS. FALL PRECAUTIONS IN PLACE, BED ALARM. PUREWICK IN PLACE, WAS INCONTINENT OF URINE ON ADMIT. CLEAN ATTENDS IN PLACE AT THIS TIME
[2025-03-06] MEDS ORDERED: LEVOTHYROXINE SODIUM 75 MCG TAB PO SCH (07:00)
--- NOTE | 2025-03-06 07:20 | NUR ---
REPORT RECIEVED FROM PENNY TRUONG. PT IS RESTING IN BED WITH EYES CLOSED. RR EVEN AND UNLABORED. CPOX IS AT BEDSIDE. CALL LIGHT WITHIN REACH.
[2025-03-06] MEDS ORDERED: FINASTERIDE 5 MG TAB PO SCH ×2 (09:00→17:03)
[2025-03-06] MEDS ORDERED: DAPTOmycin 500 MG/10 ML VIAL IV SCH ×2 (09:00→21:00)
[2025-03-06] MEDS ORDERED: DIVALPROEX SODIUM 250 MG TABLET.DR PO SCH ×2 (09:00→16:00)
[2025-03-06] MEDS ORDERED: DIVALPROEX SODIUM 500 MG TABLET.DR PO SCH ×2 (09:00→21:00)
--- NOTE | 2025-03-06 09:25 | NUR ---
PT IN BED WITH EYES OPEN. HOB IS ELEVATED, PT EATING YOGURT. MORNING ASSESSMENT COMPLETE AND DOCUMENTED IN CHART. PT IS NON-VERBAL AT BASELINE. PT DOES NOT APPEAR TO BE IN ANY DISTRESS OR DISCOMFORT. INSTRUCTED PT TO USE CALL LIGHT FOR ANY NEEDS. CALL LIGHT WITHIN REACH.
--- NOTE | 2025-03-06 10:03 | NUR ---
PATIENT IN BED AT THIS TIME. THIS MIXING TANK OPERATOR ADN PENNY GONCALVES CHANGED PATIENTS BRIEF AND CHUX AND REPLACED PUREWICK. THIS MIXING TANK OPERATOR ALSO CHARTED VITALS AND I&O'S. CALL LIGHT WITHIN REACH, NO FURTHER NEEDS.
--- NOTE | 2025-03-06 10:03 | NUR ---
In with pt and YOUSIF Diez for onelia care and change of purewick as it was not functioning properly. Pt with large unmeasured void. Onelia care provided, skin barrier applied and allowed to dry prior to applying purewick. Clean gown placed on pt and pt boosted in bed. Side rails up x4, bed alarm on. Call light in reach.
[2025-03-06] MEDS ORDERED: GUAIFEN-CODEINE10 ML PO (10:35)
[2025-03-06] MEDS ORDERED: ONDANSETRON ODT8 MG PO (10:38)
[2025-03-06] MEDS ORDERED: MIRALAX119 GM PO (10:56)
--- NOTE | 2025-03-06 11:11 | NUR ---
MED REC COMPLETE
--- NOTE | 2025-03-06 11:39 | NUR ---
PT LAYING IN BED WITH EYES OPEN. HOB IS ELEVATED. RR EVEN AND UNLABORED. CALL LIGHT WITHIN REACH.
--- NOTE | 2025-03-06 12:05 | NUR ---
PT FINISHING LUNCH TRAY AT THIS TIME, SITTING UP IN BED. PT APPEARS CALM AND IN NO APPARENT DISTRESS. FRESH ICE WATER PROVIDED WITH THICKENER. CALL LIGHT WITHIN REACH.
--- NOTE | 2025-03-06 12:20 | NUR ---
PC to Dr. Leyva to ask if she wants this pt to have ABX. Verbal order obtained from Dr. Leyva to continue Daptomycin for the next 24 hours, pharmacy to dose. Repeated order back for confirmation. PC to pharmacy to update them on verbal order received.
--- NOTE | 2025-03-06 12:51 | NUR ---
PC from Dr. Leyva who gave a verbal order to restart all of the patient's home meds while he is in the hospital. Repeated order back to Dr. Leyva for confirmation.
--- NOTE | 2025-03-06 13:07 | NUR ---
PT SITITNG UP IN BED WATCHING TV. DRESSING READJUSTED BY PENNY GONCALVES. ICE PACK PROVIDED TO HELP WITH PAIN. PILLOWS READJUSTED FOR COMFORT. CALL LIGHT WITHIN REACH.
--- NOTE | 2025-03-06 13:53 | NUR ---
PATIENT IN BED AT THIS TIME. STOCK LAYER CHARTED VITALS AND I&O'S. CALL LIGHT WITHIN REACH, NO FURTHER NEEDS.
--- NOTE | 2025-03-06 14:18 | NUR ---
PT RESTING IN BED WITH EYES OPEN. RR EVEN AND UNLABORED. CALM DEMEANOR WITH NO APPARENT DISTRESS. CALL LIGHT WITHIN REACH.
--- NOTE | 2025-03-06 14:36 | EKG ---
[facility] [address] [facility] [place], [place] [address] Signed Normal sinus rhythm Normal ECG When compared with ECG of 22-DEC-2024 16:00, No significant change was found Confirmed by JENAE BLACKBURN MD ([id number]) on 03/06/2025 2:36:07 PM Electronically Signed By: JENAE BLACKBURN 03/06/25 1436 PATIENT NAME: JAZZY MILLAN Electrocardiogram DATE OF : 59 PHYSICIAN: JENAE BLACKBURN REPORT #: [id number] REPORT IS CONFIDENTIAL AND NOT TO BE RELEASED WITHOUT AUTHORIZATION
--- NOTE | 2025-03-06 16:00 | NUR ---
In with pt for focused assessment of his left forearm. Pt is awake and alert, watching TV, in no acute distress. Removed kerlex and non-adhesive dressing from site. Noted the skin around the incision site is angry red, and appears to be blistering and rash-like. It does seem as though the area is painful for the pt, and when asked if it itches, the pt is not easily understood but it sounds like he says no. Sensitive skin foaming cleanser used to clean the area around the incision, then a warm wet wash cloth used to rinse the area, and a dry cloth was used to pat the area dry before reapplying a clean non-adherent dressing and kerlex (secured to itself with tape). The pt does have a sensitivity to adhesives. Dr. Leyva entered the room for rounds and I advised her of my thoughts about the pt possibly having a skin sensitivity to chlorhexadine or surgical scrub used during surgery. She agreed and also mentioned he may have had abx ointment on it that could be causing the rash-like appearance as well. Dr. Leyva advised we should call her if the pt seems to be feeling itchy, and otherwise no other orders received at this time. Wall suction canister emptied of 750ml clear yellow urine. When the pt is given a full cup of thickened water, the pt drinks it down, immediately. PENNY Harris assessed pt's IV site. He cried out as if in pain with initial flush and pulled his arm away; however, with additional flushing and visual assessment he seemed to tolerate it. Good blood return. Pt tolerated swallowing his oral meds without complaint or issue. Side rails up x4, call light in reach.
--- NOTE | 2025-03-06 18:39 | NUR ---
PT SITTING UP IN BED WATCHING TV. DEMEANOR IS CALM, NO APPARENT DISTRESS. CALL LIGHT WITHIN REACH.
--- NOTE | 2025-03-06 19:26 | NUR ---
Pt alert to self on ly, calm quiet, in bed sitting up position, watching tv. SL RAC patent. covered with reny wrap to prevent accidental removal. Dressing L forearm red area covered with kerlix. Edematous hand, but moveit ronal, Pt unable to understandoig instructions for gripping my hand. pt tried to pull off, reminded to keep it in place. no further attemps while I was in the room. On room air, lungs clear, abd HOE, soft, non tender, male purewick in place.
--- NOTE | 2025-03-06 19:47 | NUR ---
PT LUCIO NOTIFIED VIA PHONE, "OK TO DC CPOX AND TELE"
--- NOTE | 2025-03-06 19:52 | NUR ---
TELE DC'D AT THIS TIME
--- NOTE | 2025-03-06 22:28 | NUR ---
pt purewick tubing was kink, unknown cause. attedns changed incontinent, bed linen changed too, cooperative, skin care and clean attends in place. Bed alarm in place
--- NOTE | 2025-03-06 23:53 | NUR ---
awakens easily, no c/o pain, calm, quiet. ON room air, purewick in place draining large amonts of clear yellow urine. Pt repositions self in bed
--- NOTE | 2025-03-07 01:55 | NUR ---
Resting, hob elevated, on room air, no s/sx distress, purewick in place draining QS yellow urine
--- NOTE | 2025-03-07 03:43 | NUR ---
Resting, eyes closed, hob elevated. purewick in place, draining large amounts of yellow urine. Dressing L arm intact
[2025-03-07 05:32] VITALS: BP 126/75
--- NOTE | 2025-03-07 05:46 | NUR ---
pt resting, awakens easily, no s/sx distress, cooperative with vitals and assessment. Was picking at/scratching L arm wound area. dressing off. Replaced non sitck pad, kerlix and covered with reny wrap. Much improved less red or edematous. sutures intact. Purewick in place, draining large amount of clear yellow urine. attends dry. Repositions slef in bed, on nectar thick liquids, took meds w/o problems, aspiration precautions in place. Fall precautions, bed alrm in place
[2025-03-07 05:50] VITALS: BP 126/75
[2025-03-07] MEDS ORDERED: LEVOTHYROXINE SODIUM 75 MCG TAB PO SCH (06:00)
--- NOTE | 2025-03-07 07:16 | NUR ---
REPORT RECEIVED FROM COUNTER WEIGHER RN DIONNE. PATIENT IS LYING IN BED WITH EYES CLOSED AND RESPIRATIONS ARE EVEN AND UNLABORED.
--- NOTE | 2025-03-07 07:50 | NUR ---
FULL ASSESSMENT COMPLETE AND DOCUMENTED IN THE CHART. PATIENT IS NON-VERBAL. PATIENT WITH MALE PUREWICK IN PLACE. PATIENT IS ON ROOM AIR WITH CLEAR LUNG THROUGHOUT. LEFT FOREARM DRESSING REMAINS CLEAN, DRY, AND INTACT. CARDIAC WITH NORMAL S1/S2 ON AUSCULTATION. PATIENT REPOSITIONED WITH PENNY METZ. PATIENT IS SAT UP IN BED WITH BREAKFAST TRAY SET UP IN FRONT OF HIM. PATIENT IS EATING BREAKFAST INDEPENDENTLY. PATIENT IS ON A REGULAR DIET WITH MINCED AND MOIST TEXTURE WITH NECTAR THICK LIQUIDS. PENNY METZ EMPTIED THE PUREWICK CANISTER OF CLEAR YELLOW URINE. CALL LIGHT AND PERSONAL BELONGINGS ARE WITHIN REACH.
--- NOTE | 2025-03-07 08:17 | NUR ---
PATIENT IS LYING IN BED WITH HOB ELEVATED AND EATING BREAKFAST INDEPENDENTLY AT THIS TIME.
[2025-03-07 09:09] VITALS: BP 126/88
[2025-03-07 09:12] VITALS: BP 126/88
--- NOTE | 2025-03-07 10:07 | NUR ---
PATIENT IS LYING IN BED WITH HOB ELEVATED. PATIENT WITH EYES OPEN AND RESPIRATIONS ARE EVEN AND UNLABORED.
[2025-03-07] MEDS ORDERED: SULFAMETHOXAZO1 EACH PO (10:13)
--- NOTE | 2025-03-07 11:24 | NUR ---
THICKENED WATER GIVEN PER PT REQUEST, TELEVISION TURNED ON PER PT REQUEST. NO FURTHER NEEDS IDENTIFIED AT THIS TIME. CALL LIGHT WITHIN REACH.
--- NOTE | 2025-03-07 11:47 | NUR ---
PATIENT IS LYING IN BED WITH HOB ELEVATED. PATIENT WITH EYES OPEN AND RESPIRATIONS ARE EVEN AND UNLABORED. PATIENT LUNCH TRAY IS SET UP IN FRONT OF THE PATIENT. TV IS ON.
--- NOTE | 2025-03-07 12:07 | NUR ---
ADMISSION STARTED AT THIS TIME. RN EDUCATED PATIENT ON COMING BACK AFTER FINISHING HER LUNCH. PATIENT EXPRESSED UNDERSTANDING. PATIENT WITH HOB ELEVATED. PATIENT IS ON ROOM AIR. TV IS ON. CALL LIGHT AND PERSONAL BELONGINGS ARE WITHIN REACH.
--- NOTE | 2025-03-07 13:20 | NUR ---
THIS RN AND PENNY HUNTER AT BEDSIDE TO DRESS PT IN OWN CLOTHES, CAREGIVER AT THE BEDSIDE. PT ABLE TO STAND AT BEDSIDE, BM PRESENT IN BREIF. DEPENDS AND PT'S PANTS PUT ON LEGS, RNs BEGIN CLEANING PT, PT CONTINUOUSLY REACHES BACK AND GETS BM ON HANDS, HANDS CLEANED. PT SITS ON BED BEFORE CLEANING IS COMPLETE. PT STANDS AGAIN AND URINATES ON HIS PANTS, CLEANED AND SCRUB PANTS AND NEW BREIF IN PLACE. PT TRANSFERS TO WHEELCHAIR WITH 1PA. PENNY MCFARLAND AT BEDSIDE TO CONTINUE DC.
[2025-03-07 13:53] VITALS: BP 144/74
[2025-03-07 13:55] VITALS: BP 144/74
== END 2025-03-07 14:08 | disposition home health service (06) | DRG 603 ==
LOC: ED 01:06 → MS 04:11
PROVIDERS: Family Medicine; ADMIT Surgery; ATTEND Surgery
DX: L03.114 Cellulitis of left upper limb (principal); N13.8 Other obstructive and reflux uropathy; E03.9 Hypothyroidism, unspecified; F41.9 Anxiety disorder, unspecified; F31.9 Bipolar disorder, unspecified; C44.92 Squamous cell carcinoma of skin, unspecified; R62.50 Unspecified lack of expected normal physiological development in childhood; N40.1 Benign prostatic hyperplasia with lower urinary tract symptoms; F20.9 Schizophrenia, unspecified; Z86.73 Personal history of transient ischemic attack (TIA), and cerebral infarction without residual deficits; Z98.890 Other specified postprocedural states; Z88.8 Allergy status to other drugs, medicaments and biological substances; Z91.048 Other nonmedicinal substance allergy status; Z79.82 Long term (current) use of aspirin; Z79.899 Other long term (current) drug therapy; Z79.890 Hormone replacement therapy
CPT/HCPCS: 36415; 51702; 51798; 71045; 80053; 81001; 83605; 83735; 83880; 85025; 87502; 93005; 93010; 96365; 96366; 96375; 99285-25; A6590; A9270; J0696; J0878; J1938; J7030; Q9967; U0002

== ENCOUNTER 2025-03-19 08:39 | Emergency (ER) | payer MEDICARE, OTHER ==
[~2025-03-19] VITALS: Ht 182.9 cm; Wt 86.0 kg
--- OUTSIDE RECORDS SUMMARY | ~2025-03-19 | XMS | Continuity of Care Document ---
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 | Role | Phone | + + + + Unavailable | Unavailable | + + + + Unavailable | Unavailable | + + + + Unavailable | Unavailable | + + + + Allergies and Intolerances + + + + + + | date | description | facility | reaction | severity | + + + + + + | 2025-03-02 | Metformin | [facility] | Diarrhea | Mild | | 00:00 | | [facility] | | | + + + + + + | 2024-12-22 | Adhesive agent | [facility] - | Rash | Mild | | 00:00 | | [facility] | | | + + + + + + | 2025-03-02 | Adhesive agent | [facility] - | Rash | Moderate | | 00:00 | | [facility] | | | + + + + + + | 2025-03-02 | Metformin | [facility] - | Diarrhea | Mild | | 00:00 | | [facility] | | | + + + + + + | 2025-03-02 | Metformin | [facility] - | Diarrhea | Mild | | 00:00 | | [facility] | | | + + + + + + | 2024-12-22 | Adhesive agent | [facility] - | Rash | Mild | | 00:00 | | [facility] | | | + + + + + + | 2025-03-02 | Adhesive agent | [facility] - | Rash | Moderate | | 00:00 | | [facility] | | | + + + + + + Encounters No information. Functional Status No information. Immunizations No information. Medications + + + + | date | description | facility | + + + + | (no date) | Lurasidone HCl | [facility] | | | [facility] | + + + + | (no date) | Lurasidone HCl | [facility] | | | | [facility] | + + + + | (no date) | LURASIDONE HCL | [facility] | | | | [facility] | + + + + | (no date) | LURASIDONE HCL | [facility] | | | | [facility] | + + + + | (no date) | DIVALPROEX SODIUM | [facility] | | | [facility] | + + + + | (no date) | DIVALPROEX SODIUM | [facility] | | | [facility] | + + + + | (no date) | DIVALPROEX SODIUM | [facility] | | | [facility] | + + + + | (no date) | DIVALPROEX SODIUM | [facility] | | | | [facility] | + + + + | (no date) | MIRABEGRON | [facility] | | | [facility] | + + + + | (no date) | MIRABEGRON | [facility] | | | | [facility] | + + + + | (no date) | NEOMYCN/BACI ZN/PMYX | [facility] | | | BS/PRAMOX | [facility] | + + + + | (no date) | NEOMYCN/BACI ZN/PMYX | [facility] | | | BS/PRAMOX | [facility] | + + + + | (no date) | SIMVASTATIN | [facility] | | | | [facility] | + + + + | (no date) | SIMVASTATIN | [facility] | | | | [facility] | + + + + | (no date) | MAGNESIUM HYDROXIDE | [facility] | | | | [facility] | + + + + | (no date) | MAGNESIUM HYDROXIDE | [facility] | | | | [facility] | + + + + | (no date) | AZITHROMYCIN | [facility] | | | | [facility] | + + + + | (no date) | AZITHROMYCIN | [facility] | | | | [facility] | + + + + | (no date) | FINASTERIDE | [facility] | | | | [facility] | + + + + | (no date) | FINASTERIDE | [facility] | | | | [facility] | + + + + | (no date) | GUAIFENESIN | [facility] | | | | [facility] | + + + + | (no date) | GUAIFENESIN | [facility] | | | | [facility] | + + + + | (no date) | ZIPRASIDONE HCL | [facility] | | | | [facility] | + + + + | (no date) | ZIPRASIDONE HCL | [facility] | | | | [facility] | + + + + | (no date) | ACETAMINOPHEN | [facility] | | | | [facility] | + + + + | (no date) | ACETAMINOPHEN | [facility] | | | | [facility] | + + + + | (no date) | CARBAMIDE PEROXIDE | [facility] | | | | [facility] | + + + + | (no date) | CARBAMIDE PEROXIDE | [facility] | | | | [facility] | + + + + | (no date) | Sodium Chloride | [facility] | | | | [facility] | + + + + | (no date) | Sodium Chloride | [facility] | | | | [facility] | + + + + | (no date) | TAMSULOSIN HCL | [facility] | | | | [facility] | + + + + | (no date) | TAMSULOSIN HCL | [facility] | | | | [facility] | + + + + | (no date) | TAMSULOSIN HCL | [facility] | | | | [facility] | + + + + | (no date) | TAMSULOSIN HCL | [facility] | | | [facility] | + + + + | (no date) | BUSPIRONE HCL | [facility] | | | | [facility] | + + + + | (no date) | BUSPIRONE HCL | [facility] | | | | [facility] | + + + + | (no date) | POLYETHYLENE GLYCOL 3350 | [facility] | | | | [facility] | + + + + | (no date) | POLYETHYLENE GLYCOL 3350 | [facility] | | | | [facility] | + + + + | (no date) | LEVOTHYROXINE SODIUM | [facility] | | | | [facility] | + + + + | (no date) | LEVOTHYROXINE SODIUM | [facility] | | | | [facility] | + + + + | (no date) | | [facility] | | | Guaifenesin/Dextromethorpha | [facility] | | | n | | + + + + | (no date) | | [facility] | | | Guaifenesin/Dextromethorpha | [facility] | | | n | | + + + + Problems + + + + | date | description | facility | + + + + | 2024-12-22 00:00 | Ataxia | [facility] | | | | [facility] | + + + + | 2024-12-22 00:00 | Ataxia | [facility] | | | | [facility] | + + + + Procedures No information. Results/Labs +--------+--------+ +---------+--------+---------+ | test | date | facility | value | unit | notes | +--------+--------+ +---------+--------+---------+ + + | Result panel 1 | + + + + + +------+ + + | Glucose | 2024-12-22 | | 96 | (missing) | (missing) | | [facility] | 14:52:07 | [facility] | | | | + + + +------+ + + + + | Result panel 2 | + + + + + +-------+---------+ + | Glucose | 2024-12-22 | | 100 | mg/dL | (missing) | | SerPl-mCnc | 15:00:07 | [facility] | | | | + + + +-------+---------+ + + + | Result panel 3 | + + + + + +-----+---------+ + | BUN | 2024-12-22 | | 8 | mg/dL | (missing) | | SerPl-mCnc | 15:00:07 | [facility] | | | | + + + +-----+---------+ + + + | Result panel 4 | + + + + + +--------+---------+ + | Creat | 2024-12-22 | | 0.95 | mg/dL | (missing) | | SerPl-mCnc | 15:00:07 | [facility] | | | | | | | - | | | | | | [facility] | | | | + + + +--------+---------+ + + + | Result panel 5 | + + + + + +------+ + + | eGFRcr | 2024-12-22 | | 88 | (missing) | (missing) | | SerPlBld | 15:00:07 | [facility] | | | | | CKD-EPI 2020 | | - | | | | | | | [facility] | | | | + + + +------+ + + + + | Result panel 6 | + + + + + +--------+ + + | BUN/Creat | 2024-12-22 | | 8.42 | (missing) | (missing) | | SerPl | 15:00:07 | [facility] | | | | + + + +--------+ + + + + | Result panel 7 | + + + + + +-------+ + + | Sodium | 2024-12-22 | | 129 | (missing) | (missing) | | SerPl-sCnc | 15:00:07 | [facility] | | | | + + + +-------+ + + + + | Result panel 8 | + + + + + +-------+ + + | Potassium | 2024-12-22 | | 5.2 | (missing) | (missing) | | SerPl-sCnc | 15:00:07 | [facility] | | | | + + + +-------+ + + + + | Result panel 9 | + + + + + +------+ + + | Chloride | 2024-12-22 | | 98 | (missing) | (missing) | | SerPl-sCnc | 15:00:07 | [facility] | | | | + + + +------+ + + + + | Result panel 10 | + + + + + +------+ + + | CO2 | 2024-12-22 | | 25 | (missing) | (missing) | | [facility] | 15:00:07 | [facility] | | | | + + + +------+ + + + + | Result panel 11 | + + + + + +--------+ + + | Anion Gap | 2024-12-22 | | 11.2 | (missing) | (missing) | | SerPl | 15:00:07 | [facility] | | | | | Calculated.4 | [facility] | | | | + + + +--------+ + + + + | Result panel 12 | + + + + + +-------+---------+ + | Calcium | 2024-12-22 | | 9.0 | mg/dL | (missing) | | SerPl-mCnc | 15:00:07 | [facility] | | | | + + + +-------+---------+ + + + | Result panel 13 | + + + + + +-------+ + + | Prot | 2024-12-22 | | 7.4 | (missing) | (missing) | | SerPl-mCbernard | 15:00:07 | [facility] | | | | + + + +-------+ + + + + | Result panel 14 | + + + + + +-------+ + + | Albumin | 2024-12-22 | | 3.4 | (missing) | (missing) | | SerPl-mCnc | 15:00:07 | [facility] | | | | + + + +-------+ + + + + | Result panel 15 | + + + + + +-------+ + + | Globulin | 2024-12-22 | | 4.0 | (missing) | (missing) | | Ser-mCnc | 15:00:07 | [facility] | | | | + + + +-------+ + + + + | Result panel 16 | + + + + + +--------+ + + | | 2024-12-22 | | 0.85 | (missing) | (missing) | | Albumin/Glob | 15:00:07 | [facility] | | | | | SerPl [facility] | | | | + + + +--------+ + + + + | Result panel 17 | + + + + + +-------+---------+ + | Bilirub | 2024-12-22 | | 0.4 | mg/dL | (missing) | | SerPl-mCnc | 15:00:07 | [facility] | | | | + + + +-------+---------+ + + + | Result panel 18 | + + + + + +------+ + + | AST | 2024-12-22 | | 15 | (missing) | (missing) | | SerPl-cCnc | 15:00:07 | [facility] | | | | + + + +------+ + + + + | Result panel 19 | + + + + + +------+ + + | ALT | 2024-12-22 | | 13 | (missing) | (missing) | | [facility] | 15:00:07 | [facility] | | | | + + + +------+ + + + + | Result panel 20 | + + + + + +------+ + + | ALP | 2024-12-22 | | 71 | (missing) | (missing) | | SerPl-cCnc | 15:00:07 | [facility] | | | | + + + +------+ + + + + | Result panel 21 | + + + + + +--------+ + + | WBC # Bld | 2024-12-22 | | 9.39 | (missing) | (missing) | | Auto | 15:28:07 | [facility] | | | | + + + +--------+ + + + + | Result panel 22 | + + + + + +--------+ + + | RBC # Bld | 2024-12-22 | | 4.06 | (missing) | (missing) | | Auto | 15:28:07 | [facility] | | | | + + + +--------+ + + + + | Result panel 23 | + + + + + +--------+ + + | Hgb | 2024-12-22 | | 12.6 | (missing) | (missing) | | Bld-mCnc | 15:28:07 | [facility] | | | | + + + +--------+ + + + + | Result panel 24 | + + + + + +--------+ + + | Hct VFr.DF | 2024-12-22 | | 37.6 | (missing) | (missing) | | Bld Auto | 15:28:07 | [facility] | | | | | | | - | | | | | | | [facility] | | | | + + + +--------+ + + + + | Result panel 25 | + + + + + +--------+ + + | RBC Auto | 2024-12-22 | | 92.6 | (missing) | (missing) | | | 15:28:07 | [facility] | | | | + + + +--------+ + + + + | Result panel 26 | + + + + + +--------+ + + | MCH RBC Qn | 2024-12-22 | | 31.0 | (missing) | (missing) | | Auto | 15:28:07 | [facility] | | | | + + + +--------+ + + + + | Result panel 27 | + + + + + +--------+ + + | MCHC RBC | 2024-12-22 | | 33.5 | (missing) | (missing) | | Auto-EntMCnc | 15:28:07 | [facility] | | | | + + + +--------+ + + + + | Result panel 28 | + + + + + +-------+ + + | Platelet # | 2024-12-22 | | 143 | (missing) | (missing) | | Bld Auto | 15:28:07 | [facility] | | | | | | | - | | | | | | | [facility] | | | | + + + +-------+ + + + + | Result panel 29 | + + + + + +--------+ + + | Neutrophils | 2024-12-22 | | 53.7 | (missing) | (missing) | | NFr Bld | 15::07 | [facility] | | | | | Auto | [facility] | | | | + + + +--------+ + + + + | Result panel 30 | + + + + + +--------+ + + | Lymphocytes | 2024-12-22 | | 31.2 | (missing) | (missing) | | NFr Bld | 15:28:07 | [facility] | | | | | Auto | [facility] | | | | + + + +--------+ + + + + | Result panel 31 | + + + + + +--------+ + + | Monocytes | 2024-12-22 | | 10.6 | (missing) | (missing) | | NFr Bld Auto | 15:28:07 | [facility] | | | | + + + +--------+ + + + + | Result panel 32 | + + + + + +-------+ + + | Eosinophil | 2024-12-22 | | 3.3 | (missing) | (missing) | | NFr Bld Auto | 15:28:07 | [facility] | | | | + + + +-------+ + + + + | Result panel 33 | + + + + + +-------+ + + | Basophils | 2024-12-22 | | 0.7 | (missing) | (missing) | | NFr Bld Auto | 15:28:07 | [facility] | | | | + + + +-------+ + + + + | Result panel 34 | + + + + + + + + + | Color Ur | 2024-12-22 | | YELLOW | (missing) | (missing) | | Auto | 16:58:07 | [facility] | | | | + + + + + + + + + | Result panel 35 | + + + + + +---------+ + + | Character | 2024-12-22 | | CLEAR | (missing) | (missing) | | Ur | 16:58:07 | [facility] | | | | + + + +---------+ + + + + | Result panel 36 | + + + + + + + + + | Glucose Ur | 2024-12-22 | | NEGATIVE | (missing) | (missing) | | Ql Strip | 16:58:07 | [facility] | | | | + + + + + + + + + | Result panel 37 | + + + + + + + + + | Bilirub Ur | 2024-12-22 | | NEGATIVE | (missing) | (missing) | | Ql Strip | 16:58:07 | [facility] | | | | + + + + + + + + + | Result panel 38 | + + + + + +---------+ + + | Maki Hoffman | 2024-12-22 | | TRACE | (missing) | (missing) | | Ql Strip | 16:58:07 | [facility] | | | | + + + +---------+ + + + + | Result panel 39 | + + + + + +---------+ + + | Jason Hoffman | 2024-12-22 | | 1.020 | (missing) | (missing) | | Strip | 16:58:07 | [facility] | | | | + + + +---------+ + + + + | Result panel 40 | + + + + + +---------+ + + | Hgb Ur Ql | 2024-12-22 | | SMALL | (missing) | (missing) | | Strip | 16:58:07 | [facility] | | | | + + + +---------+ + + + + | Result panel 41 | + + + + + +-------+ + + | pH Ur Strip | 2024-12-22 | | 6.0 | (missing) | (missing) | | | 16:58:07 | [facility] | | | | + + + +-------+ + + + + | Result panel 42 | + + + + + + + + + | Prot Ur | 2024-12-22 | | NEGATIVE | (missing) | (missing) | | Strip-[facility]elle | 16:58:07 | [facility] | | | | + + + + + + + + + | Result panel 43 | + + + + + +-------+ + + | | 2024-12-22 | | 1.0 | (missing) | (missing) | | Urobilinogen | 16:58:07 | [facility] | | | | | Ur | [facility] | | [facility] | | | | + + + +-------+ + + + + | Result panel 44 | + + + + + + + + + | Nitrite Ur | 2024-12-22 | | NEGATIVE | (missing) | (missing) | | Ql Strip | 16:58:07 | [facility] | | | | + + + + + + + + + | Result panel 45 | + + + + + + + + + | Leukocyte | 2024-12-22 | | NEGATIVE | (missing) | (missing) | | esterase Ur | 16:58:07 | [facility] | | | | | Ql Strip [facility] | | | | + + + + + + + + + | Result panel 46 | + + + + + +-------+ + + | RBC #/area | 2024-12-22 | | 4-6 | (missing) | (missing) | | UrnS HPF | 16:58:07 | [facility] | | | | + + + +-------+ + + + + | Result panel 47 | + + + + + +-------+ + + | WBC #/area | 2024-12-22 | | 0-1 | (missing) | (missing) | | UrnS HPF | 16:58:07 | [facility] | | | | | | | - | | | | | | | [facility] | | | | + + + +-------+ + + + + | Result panel 48 | + + + + + + + + + | Epi Cells | 2024-12-22 | | NONE SEEN | (missing) | (missing) | | #/area Ur | 16:58:07 | [facility] | | | | | HPF [facility] | | | | + + + + + + + + + | Result panel 49 | + + + + + + + + + | Crystals | 2024-12-22 | | NONE SEEN | (missing) | (missing) | | Rolly Micro | 16:58:07 | [facility] | | | | + + + + + + + + + | Result panel 50 | + + + + + + + + + | Bacteria | 2024-12-22 | | NONE SEEN | (missing) | (missing) | | #/area UrnS | 16:58:07 | [facility] | | | | | HPF [facility] | | | | + + + + + + + + + | Result panel 51 | + + + + + + + + + | Casts | 2024-12-22 | | NONE SEEN | (missing) | (missing) | | #/area UrnS | 16:58:07 | [facility] | | | | | LPF | [facility] | | | | + + + + + + + + + | Result panel 52 | + + + + + +------+ + + | Bacteria Ur | 2024-12-22 | | No | (missing) | (missing) | | Cult | 16:58:07 | [facility] | | | | + + + +------+ + + + + | Result panel 53 | + + + + + + + + + | Urn Spec | 2024-12-22 | | CLEAN CATCH | (missing) | (missing) | | Collect Meth | 16:58:07 | [facility] | | | | | Ur | [facility] | | | | + + + + + + + + + | Result panel 54 | + + + + + +--------+ + + | WBC # Bld | 2025-03-01 | | 7.87 | (missing) | (missing) | | Auto | 14:34:07 | [facility] | | | | + + + +--------+ + + + + | Result panel 55 | + + + + + +--------+ + + | Lymphocytes | 2025-03-01 | | 41.7 | (missing) | (missing) | | NFr Bld | 14:34:07 | [facility] | | | | | Auto | [facility] | | | | + + + +--------+ + + + + | Result panel 56 | + + + + + +--------+ + + | Monocytes | 2025-03-01 | | 10.4 | (missing) | (missing) | | NFr Bld Auto | 14:34:07 | [facility] | | | | + + + +--------+ + + + + | Result panel 57 | + + + + + +-------+ + + | Eosinophil | 2025-03-01 | | 2.8 | (missing) | (missing) | | NFr Bld Auto | 14:34:07 | [facility] | | | | + + + +-------+ + + + + | Result panel 58 | + + + + + +-------+ + + | Basophils | 2025-03-01 | | 0.6 | (missing) | (missing) | | NFr Bld Auto | 14:34:07 | [facility] | | | | + + + +-------+ + + + + | Result panel 59 | + + + + + +------+---------+ + | Glucose | 2025-03-01 | | 90 | mg/dL | (missing) | | [facility] | 14:34:07 | [facility] | | | | + + + +------+---------+ + + + | Result panel 60 | + + + + + +------+---------+ + | BUN | 2025-03-01 | | 14 | mg/dL | (missing) | | Sarahl-[facility]nard | 14:34:07 | [facility] | | | | + + + +------+---------+ + + + | Result panel 61 | + + + + + +--------+---------+ + | Creat | 2025-03-01 | | 1.03 | mg/dL | (missing) | | SerPl-mCnc | 14:34:07 | [facility] | | | | | | | - | | | | | | | [facility] | | | | + + + +--------+---------+ + + + | Result panel 62 | + + + + + +------+ + + | eGFRcr | 2025-03-01 | | 80 | (missing) | (missing) | | SerPlBld | 14:34:07 | [facility] | | | | | CKD-EPI 2020 | [facility] | | | | + + + +------+ + + + + | Result panel 63 | + + + + + +---------+ + + | BUN/Creat | 2025-03-01 | | 13.59 | (missing) | (missing) | | SerPl | 14:34:07 | [facility] | | | | + + + +---------+ + + + + | Result panel 64 | + + + + + +-------+ + + | Sodium | 2025-03-01 | | 131 | (missing) | (missing) | | SerPl-sCnc | 14:34:07 | [facility] | | | | + + + +-------+ + + + + | Result panel 65 | + + + + + +--------+ + + | RBC # Bld | 2025-03-01 | | 4.19 | (missing) | (missing) | | Auto | 14:34:07 | [facility] | | | | + + + +--------+ + + + + | Result panel 66 | + + + + + +-------+ + + | Potassium | 2025-03-01 | | 4.4 | (missing) | (missing) | | SerPl-sCnc | 14:34:07 | [facility] | | | | + + + +-------+ + + + + | Result panel 67 | + + + + + +------+ + + | Chloride | 2025-03-01 | | 97 | (missing) | (missing) | | [facility] | 14:34:07 | [facility] | | | | + + + +------+ + + + + | Result panel 68 | + + + + + +------+ + + | CO2 | 2025-03-01 | | 27 | (missing) | (missing) | | [facility] | 14:34:07 | [facility] | | | | + + + +------+ + + + + | Result panel 69 | + + + + + +--------+ + + | Anion Gap | 2025-03-01 | | 11.4 | (missing) | (missing) | | [facility] | 14:34:07 | [facility] | | | | | Calculated.4 | [facility] | | | | + + + +--------+ + + + + | Result panel 70 | + + + + + +-------+---------+ + | Calcium | 2025-03-01 | | 9.2 | mg/dL | (missing) | | [facility] | 14:34:07 | [facility] | | | | + + + +-------+---------+ + + + | Result panel 71 | + + + + + +--------+ + + | Hgb | 2025-03-01 | | 12.8 | (missing) | (missing) | | Bld-[facility] | 14:34:07 | [facility] | | | | + + + +--------+ + + + + | Result panel 72 | + + + + + +--------+ + + | Hct VFr.DF | 2025-03-01 | | 39.1 | (missing) | (missing) | | Bld Auto | 14:34:07 | [facility] | | | | + + + +--------+ + + + + | Result panel 73 | + + + + + +--------+ + + | RBC Auto | 2025-03-01 | | 93.3 | (missing) | (missing) | | | 14:34:07 | [facility] | | | | + + + +--------+ + + + + | Result panel 74 | + + + + + +--------+ + + | MCH RBC Qn | 2025-03-01 | | 30.5 | (missing) | (missing) | | Auto | 14:34:07 | [facility] | | | | + + + +--------+ + + + + | Result panel 75 | + + + + + +--------+ + + | MCHC RBC | 2025-03-01 | | 32.7 | (missing) | (missing) | | Auto-[facility] | 14:34:07 | [facility] | | | | + + + +--------+ + + + + | Result panel 76 | + + + + + +-------+ + + | Platelet # | 2025-03-01 | | 208 | (missing) | (missing) | | Bld Auto | 14:34:07 | [facility] | | | | + + + +-------+ + + + + | Result panel 77 | + + + + + +--------+ + + | Neutrophils | 2025-03-01 | | 44.2 | (missing) | (missing) | | NFr Bld | 14:34:07 | [facility] | | | | | [facility] | | | | + + + +--------+ + + + + | Result panel 78 | + + + + + +------+ + + | Glucose | 2025-03-03 | | 89 | (missing) | (missing) | | Bld-mCnc | 10:26:07 | [facility] | | | | + + + +------+ + + Social History +--------+ + + | date | description | facility | +--------+ + + Vital Signs + + + +---------+ | date | measurement | value | units | + + + +---------+ | 2024-12-22 00:00 | BMI | 27.2 | kg/m2 | + + + +---------+ | 2024-12-22 00:00 | BP_diastolic | 80 | mmHg | + + + +---------+ | 2024-12-22 00:00 | BP_systolic | 129 | mmHg | + + + +---------+ | 2024-12-22 00:00 | heart_rate | 66 | /min | + + + +---------+ | 2024-12-22 00:00 | height_metric | 182.88 | cm | + + + +---------+ | 2024-12-22 00:00 | height_standard | 72 | in | + + + +---------+ | 2024-12-22 00:00 | o2_saturation | 98 | % | + + + +---------+ | 2024-12-22 00:00 | respiration_rate | 17 | /min | + + + +---------+ | 2024-12-22 00:00 | | 98.4 | F | | | temperature_standar | | | | | d | | | + + + +---------+ | 2024-12-22 00:00 | weight_metric | 90.9 | kg | + + + +---------+ | 2024-12-22 00:00 | weight_standard | 200.400 | lb | + + + +---------+ | 2025-03-01 00:00 | BMI | 25.4 | kg/m2 | + + + +---------+ | 2025-03-01 00:00 | height_metric | 182.88 | cm | + + + +---------+ | 2025-03-01 00:00 | height_standard | 72 | in | + + + +---------+ | 2025-03-01 00:00 | weight_metric | 85 | kg | + + + +---------+ | 2025-03-01 00:00 | weight_standard | 187.393 | lb | + + + +---------+ | 2025-03-03 00:00 | BP_diastolic | 96 | mmHg | + + + +---------+ | 2025-03-03 00:00 | BP_systolic | 151 | mmHg | + + + +---------+ | 2025-03-03 00:00 | heart_rate | 90 | /min | + + + +---------+ | 2025-03-03 00:00 | o2_saturation | 99 | % | + + + +---------+ | 2025-03-03 00:00 | respiration_rate | 16 | /min | + + + +---------+ | 2025-03-03 00:00 | | 97.8 | F | | | temperature_standar | | | | | d | | | + + + +---------+"
[~2025-03-19 08:39] MED LIST changes: +GUAIFEN-CODEINE10 ML PO; +MIRALAX119 GM PO; +ONDANSETRON ODT8 MG PO; +SULFAMETHOXAZO1 EACH PO
--- OUTSIDE RECORDS SUMMARY | 2025-03-19 08:45 | XMS ---
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 Events No recent Security Events currently on file CRITERIA MET - [facility] - 2 Visits in 30 Days CARE PROVIDERS -, [facility] Dentist: Loading Rack Supervisor Current [facility] PHONE: [phone] -Yamilka- Dentist: Loading Rack Supervisor Current [facility] PHONE: [phone] [facility]: [facility] Current FAMILY PHONE: [phone] [facility] Current PHONE: Unknown [facility] Current PHONE: [phone] Care Guidelines exist for the following facilities: [facility], [place], [facility] ( 10/26/2019 ) [place] VISIT COUNT (12 MO.) 9 DEM[facility] Guerrero TOTAL 9 NOTE: Visits indicate total known visits. ED/UCC VISIT TRACKING (12 MO.) 03/19/2025 08:39 [facility] TYPE: Emergency COMPLAINT: - WOUND CHECK 03/06/2025 01:06 [facility] TYPE: Emergency COMPLAINT: - WEAKNESS 12/22/2024 14:43 [facility] TYPE: Emergency COMPLAINT: - LEANING TO LT DIAGNOSES: - Ataxia, unspecified - Essential (primary) hypertension - Hormone replacement therapy - Hypothyroidism, unspecified - FPC (current) use of aspirin - Other buttermaker helper (current) drug therapy - Other nonmedicinal substance allergy status - Pure hypercholesterolemia, unspecified - Unsteadiness on feet 11/17/2024 20:04 [facility] TYPE: Emergency COMPLAINT: - FALL DIAGNOSES: - Essential (primary) hypertension - FPC (current) use of antibiotics - Other allergy status, other than to drugs and biological substances - Other buttermaker helper (current) drug therapy - Pneumonia, unspecified organism - Urinary tract infection, site not specified 11/16/2024 08:43 [facility] TYPE: Emergency COMPLAINT: - WEAKNESS DIAGNOSES: - Cerebral palsy, unspecified - Pneumonia, unspecified organism - Weakness 08/12/2024 18:10 [facility] TYPE: Emergency COMPLAINT: - STROKE 07/18/2024 15:11 [facility] TYPE: Emergency COMPLAINT: - WEAKNESS 07/16/2024 14:12 [facility] TYPE: Emergency COMPLAINT: - WEAKNESS DIAGNOSES: - Bipolar disorder, unspecified - Cerebral palsy, unspecified - Essential (primary) hypertension - Hormone replacement therapy - Hypothyroidism, unspecified - Other buttermaker helper (current) drug therapy - Other nonmedicinal substance allergy status - Viral infection, unspecified - Weakness 04/19/2024 17:54 [facility] TYPE: Emergency COMPLAINT: - COLD SYMPTOMS DIAGNOSES: - Bipolar disorder, unspecified - Essential (primary) hypertension - Hormone replacement therapy - Hypothyroidism, unspecified - Other care home (current) drug therapy - Pneumonia, unspecified organism - Weakness INPATIENT VISIT TRACKING (12 MO.) 03/06/2025 04:11 [facility] TYPE: Medical Surgical COMPLAINT: - CELLULITIS, SEPSIS, DEVELOPMENTAL DELAY DIAGNOSES: - Allergy status to other drugs, medicaments and biological substances - Allergy status to other drugs, medicaments and biological substances - Anxiety disorder, unspecified - Anxiety disorder, unspecified - Benign prostatic hyperplasia with lower urinary tract symptoms - Benign prostatic hyperplasia with lower urinary tract symptoms - Bipolar disorder, unspecified - Bipolar disorder, unspecified - Cellulitis of left upper limb - Cellulitis of left upper limb - Hormone replacement therapy - Hormone replacement therapy - Hypothyroidism, unspecified - Hypothyroidism, unspecified - continuous churn buttermaker (current) use of aspirin - continuous churn buttermaker (current) use of aspirin - Obstructive and reflux uropathy, unspecified - Other fatigue - Other care home (current) drug therapy - Other buttermaker helper (current) drug therapy - Other nonmedicinal substance allergy status - Other nonmedicinal substance allergy status - Other obstructive and reflux uropathy - Other obstructive and reflux uropathy - Other specified postprocedural states - Other specified postprocedural states - Personal history of transient ischemic attack (TIA), and cerebral infarction without residual deficits - Personal history of transient ischemic attack (TIA), and cerebral infarction without residual deficits - Schizophrenia, unspecified - Schizophrenia, unspecified - Squamous cell carcinoma of skin, unspecified - Squamous cell carcinoma of skin, unspecified - Unspecified lack of expected normal physiological development in childhood - Unspecified lack of expected normal physiological development in childhood 08/13/2024 13:[address] [facility] [place] TYPE: Medical Surgical COMPLAINT: - WEAKNESS,TIA [...] Transient cerebral ischemic attack, unspecified 07/18/2024 19:45 [facility] TYPE: Medical [...] Hypothyroidism, unspecified - Hypothyroidism, unspecified - Other buttermaker helper (current) drug therapy - Other care home (current) drug therapy - Other nonmedicinal substance allergy status - Other nonmedicinal substance allergy status - Pneumonia, unspecified organism - Pure hypercholesterolemia, unspecified - Pure hypercholesterolemia, unspecified [email or web address]
[2025-03-19 12:32] VITALS: BP 114/97
== END 2025-03-19 13:00 | disposition home or self-care (01) ==
LOC: ED 08:39
DX: T81.31XA Disruption of external operation (surgical) wound, not elsewhere classified, initial encounter (principal); I10 Essential (primary) hypertension; E78.00 Pure hypercholesterolemia, unspecified; E03.9 Hypothyroidism, unspecified; Z79.899 Other long term (current) drug therapy; Z91.048 Other nonmedicinal substance allergy status; Z88.5 Allergy status to narcotic agent; Z79.82 Long term (current) use of aspirin; Z98.890 Other specified postprocedural states
CPT/HCPCS: 99283